=== PATIENT | female | born 1930 | race Caucasian/White ===

== ENCOUNTER 2018-01-30 10:37 | Inpatient (IN) ==
[2018-01-30 11:44] LABS: Basophils % 0.3 % (0.1-2.0); Eosinophils # 0.2 K/mm3 (0.0-0.4); Eosinophils % 1.1 % (0.1-12.0); Hemoglobin 12.1 g/dL (12.2-16.2); Lymphocytes # 1.3 K/mm3 (0.7-4.5); Lymphocytes % 9.2 K/mm3 (10-50); Mean Corpuscular Hemoglobin 27.7 pg (27.0-31.2); Mean Corpuscular Volume 89.3 fl (81-99); Mean Platelet Volume 6.9 fl (7.4-10.4); Monocytes # 0.9 K/mm3 (0.1-1.0); Monocytes % 6.4 % (1.7-9.3); Neutrophils # 11.3 K/mm3 (1.8-7.8); Platelet Count 368 K/mm3 (142-424); Red Blood Count 4.37 M/mm3 (4.20-5.40); Red Cell Distribution Width 13.4 % (11.5-17.5); White Blood Count 13.6 K/mm3 (4.8-10.8)
[2018-01-30 11:51] LABS: Anion Gap 11.5 mEq/L (5-15); Potassium 3.5 mmoL/L (3.5-5.1)
[2018-01-30 12:07] LABS: Creatine Kinase 35 U/L (26-192)
[2018-01-30 12:50] LABS: ABG Base Excess 3.5 mmol/L (-2.4-2.3); ABG HCO3 26.7 mmhg (22.0-26.0); ABG Oxygen Saturation 91 % (90-100); ABG PCO2 35.3 mmhg (35.0-45.0); ABG TCO2 27.8 mmhg (23-27)
[2018-01-30 12:51] LABS: Allen's Test Acceptable; Oxygen 32% %
[2018-01-30 13:05] LABS: Appearance,Urine CLEAR (Clear); Bilirubin,Urine Negative (Negative); Blood, Urine Negative (Negative); Color,Urine YELLOW (Yellow); Glucose,Urine (UA) Negative (Negative); Ketones,Urine Negative (Negative); Leukocyte Esterase,Urine Negative (Negative); Microscopic, Urine URINE MICROSCOPIC (MICROSCOPIC); Protein,Urine Negative (Negative); Specific Gravity, Urine 1.015 (1.005-1.030); Urobilinogen,Urine 0.2 EU/dl (0.2)
--- NOTE | 2018-01-30 13:12 | Emergency Department Note ---
ED Disposition Clinical Impression: COPD exacerbation Acute bronchitis Qualifiers: Bronchitis organism: other organism Qualified Code(s): J20.8 - Acute bronchitis due to other specified organisms Disposition: Admitted As Inpatient Condition on Discharge: Fair Time of Disposition: 13:10 - Critical Care Critical Care Time: No Attestation: On 01/30/18, the high probability of a clinically significant, sudden or life threatening deterioration of the following system(s) required my full and direct attention, intervention and personal management. The time I documented below is in addition to time spent performing reported procedures but includes the following listed in this critical care notation. Medical Decision Making - Medical Records Medical records reviewed: Yes: I reviewed the patient's medical records. - Sina Inquiry Pt receiving controlled substance: No Vital Signs: 01/30/18 10:38 Temperature 97.8 F Temperature Source Oral Pulse Rate [Left Radial] 83 Respiratory Rate 30 H Blood Pressure [Right Arm] 131/52 Blood Pressure Mean [Right Arm] 78 Blood Pressure Source [Right Arm] Automatic Cuff Blood Pressure Position [Right Arm] Sitting 02 Sat by Pulse Oximetry 98 Oxygen Delivery Method Nasal Cannula Oxygen Flow Rate (LPM) 3 - Lab Data Lab results reviewed: Yes: I reviewed the patient's lab results. Lab Results 01/30/18 10:43: Specimen Source Right brachial, O2 % 32%, ABG pH 7.50 H, ABG pCO2 35.3, ABG pO2 58.0 L, ABG HCO3 26.7 H, ABG Total CO2 27.8 H, ABG O2 Saturation 91, ABG Base Excess 3.5 H, Lalo Test Acceptable 01/30/18 11:30: WBC 13.6 H, RBC 4.37, Hgb 12.1 L, Hct 39.0, MCV 89.3, MCH 27.7, MCHC 31.0 L, RDW 13.4, Plt Count 368, MPV 6.9 L, Neut % (Auto) 83.0 H, Lymph % ( Auto) 9.2 L, Real % (Auto) 6.4, Eos % (Auto) 1.1, Baso % (Auto) 0.3, Neut # ( Auto) 11.3 H, Lymph # (Auto) 1.3, Real # (Auto) 0.9, Eos # (Auto) 0.2, Baso # ( Auto) 0.0 01/30/18 11:30: Sodium 142, Potassium 3.5, Chloride 102, Carbon Dioxide 32, Anion Gap 11.5, BUN 50 H, Creatinine 1.92 H, Estimated Creat Clear 18, Estimated GFR 25 L, Est GFR ( Amer) 30 L, Glucose 114 H, Calcium 10.0 01/30/18 11:30: Lactic Acid 2.2 H 01/30/18 11:30: Total Creatine Kinase 35, CK-MB (CK-2) 0.8, CK-MB (CK-2) Rel Index 2.3, Troponin I < 0.02 01/30/18 11:30: B-Natriuretic Peptide 180 H 01/30/18 13:00: Urine Color Yellow, Urine Appearance Clear, Urine pH 7.0, Ur Specific [place] 1.015, Urine Protein Negative, Urine Glucose (UA) Negative, Urine Ketones Negative, Urine Blood Negative, Urine Nitrate Negative, Urine Bilirubin Negative, Urine Urobilinogen 0.2, Ur Leukocyte Esterase Negative, Urine WBC Occasional, Ur Squamous Epith Cells Occasional, Urine Yeast 3+ Result diagrams: 01/30/18 11:30 01/30/18 11:30 Orders (Tests/Meds): ED MEDICATIONS Generic Name Dose Route Start Last Admin Trade Name Freq PRN Reason Stop Dose Admin Albuterol/Ipratropium 3 ml 01/30/18 20:00 Duoneb 3ml [facility] 03/01/18 19:59 QIDRT [facility] Enoxaparin Sodium 40 mg 01/30/18 16:56 01/30/18 17:27 Lovenox 40mg/0.4ml Syringe SQ 01/30/18 16:57 40 mg ONCE ONE Administration Methylprednisolone Sodium Succinate 60 mg 01/30/18 21:00 Solu-Medrol 125mg/2ml Vial IV 03/01/18 20:59 Q8 [facility] Discontinued Medications Generic Name Dose Route Start Last Admin Trade Name Freq PRN Reason Stop Dose Admin Albuterol/Ipratropium 3 ml 01/30/18 13:16 Duoneb 3ml [facility] 01/30/18 13:17 ONCE ONE Albuterol/Ipratropium 3 ml 01/30/18 15:14 Duoneb 3ml [facility] 03/01/18 15:13 Q4RT [facility] Sodium Chloride 1,000 mls @ 999 mls/hr 01/30/18 10:45 01/30/18 11:43 Sod Chlor 0.9% 1000ml Bag IV 01/30/18 11:45 999 mls/hr .Q1H1M TERELL Administration Ceftriaxone Sodium 1 gm/ 50 mls @ 100 mls/hr 01/30/18 15:45 Sodium Chloride IV 02/13/18 15:44 1300 TERELL Protocol Methylprednisolone Sodium Succinate 125 mg 01/30/18 10:45 01/30/18 11:42 Solu-Medrol 125mg/2ml Vial IV 01/30/18 10:46 125 mg ONCE ONE Administration Methylprednisolone Sodium Succinate 60 mg 01/30/18 21:00 Solu-Medrol 125mg/2ml Vial IV 03/01/18 20:59 Q12 TERELL Methylprednisolone Sodium Succinate 60 mg 01/30/18 16:45 01/30/18 17:13 Solu-Medrol 125mg/2ml Vial IV 03/01/18 16:44 Not Given Q8H TERELL ORDERS Category Date Time Status Blood Culture Stat Micro 01/30/18 11:30 Received - Radiology Data #1 Image(s): Chest Image Reviewed: Yes I reviewed the patient's radiology results, Yes I reviewed the patient's radiology image, Yes I discussed the image results w/the radiologist Preliminary Findings: Abnormal COPD - ECG Data Tracing #1 No acute ischemic changes, heart rate 88, no ectopies. ECG normal with no acute: arrhythmias, ischemia, conduction abnormalities, chamber hypertrophy Normal Sinus Rhythm: Yes - Physician Consults Physician Consulted: Dr Wheat Time: 13:00 Reason -: Admission, Pt condition Comment/Response: Advised of patient's presentation and findings, agreeable with admission - Reevaluation(s) Time: 12:55 Reevaluation #1: Upon reevaluation patient appears to be in distress, wheezing, tachypneic, advised of results obtained and plan to hospitalize, for observation. Resp/SOB HPI - General Chief Complaint: Shortness of Breath/Dyspnea Stated Complaint: SOA Time Seen by Provider: 01/30/18 11:00 Mode of Arrival: Ambulatory Source of Information: Patient Limitations: No Limitations Description of Symptoms (Recalled from ER Triage Doc. by RN): PT states she is sick all over, states she needs to be admitted for a few days, says she cant sleep and is a nervous wreck. She feels short of breath. - History of Present Illness MD Complaint: shortness of breath, cough, pain with inspiration Onset (ago): day(s) (2) Context: recent illness Severity: moderate Consistency/Duration: intermittent Relieving factors: oxygen Exacerbating factors: lying flat Known history of: COPD Associated symptoms: pain with inspiration, cough, wheezing Treatment prior to arrival: oxygen - Related Data Home oxygen amount: 2 liters Home Medications Medication Instructions Recorded Confirmed Aspirin [Aspirin 81mg chewable 81 mg PO DAILY 01/30/18 01/30/18 tab] Carvedilol [Carvedilol 6.25mg Tab] 6.25 mg PO DAILY 01/30/18 01/30/18 Cetirizine HCl 10 mg PO DAILY 01/30/18 01/30/18 diazePAM [Valium] 5 mg PO NEEDED PRN 01/30/18 01/30/18 Allergies Allergy/AdvReac Type Severity Reaction Status Date / Time No Known Allergies Allergy Verified 01/24/18 07:20 [facility] History I have reviewed the patient's past medical history: Yes Medical History: Denies:: Diabetes Mellitus Type 1, Diabetes Mellitus Type 2 Laterality Cases: Right: Total Hip Replacement - Social History Smoking Status: Former smoker Tobacco Type: cigarettes Alcohol Intake: never - Psychiatric History Expresses thoughts of harming self/others: None Suicide Plan Description: No Plan ROS Obtained: Yes All systems reviewed & no additional complaints, Yes Systems reviewed as appropriate & no additional complaints - Respiratory Respiratory: Yes system reviewed and no additional complaints, except as docu, Yes as per HPI, Yes chest congestion, Yes cough, Yes dyspnea on exertion Physical Exam - General General appearance: alert, in distress (moderate) - Head Head exam: atraumatic, normocephalic, normal inspection - Neck Neck exam: Present: normal inspection, full ROM, trachea midline. Absent: meningismus, lymphadenopathy - Chest Chest inspection: Present: normal inspection, symmetric chest wall rise. Absent : tenderness - Respiratory Respiratory exam: Present: respiratory distress, wheezes - Cardiovascular Cardiovascular exam: Present: regular rate, normal rhythm. Absent: JVD - Abdominal Exam Abdominal exam: Present: soft, normal bowel sounds. Absent: distention, tenderness, guarding - Extremities Exam Extremities exam: Present: normal inspection, full ROM, normal capillary refill. Absent: calf tenderness - Back Exam Back exam: Present: normal inspection. Absent: tenderness - Neurological Exam Neurological exam: Present: alert, oriented X3 - Psychiatric Psychiatric exam: Present: normal affect, normal mood - Skin Skin exam: Present: warm, dry, intact, normal color - Lymphatic Lymphatic Findings: no adenopathy
[2018-01-30 13:13] LABS: WBC,Urine Occasional #/hpf (0-3)
[2018-01-30 13:14] LABS: Squamous Epithelial Cell,Urine Occasional #/hpf (0-5); Yeast,Urine 3+ /lpf
--- NOTE | 2018-01-30 13:51 | Pharmacy Consult Notes ---
[facility] Pharmacy VTE Monitoring - Patient Demographics Admission date: 01/30/18 Report Date: 01/30/18 Time: 13:50 Allergies/Adverse Reactions: Patient Allergies No Known Allergies Allergy (Verified 01/24/18 07:20) Height: 1.68 m Weight: 54.431 kg Patient Problems: Current Active Problems COPD exacerbation (Acute) Acute bronchitis (Acute) - VTE Risk Labs: VTE Related Lab Results Hgb 12.1 g/dL (12.2-16.2) L 01/30/18 11:30 Hct 39.0 % (37.0-47.0) 01/30/18 11:30 Plt Count 368 K/mm3 (142-424) 01/30/18 11:30 BUN 50 mg/dL (7-18) H 01/30/18 11:30 Creatinine 1.92 mg/dL (0.55-1.02) H 01/30/18 11:30 Estimated Creat Clear 18 mL/min (0-300) 01/30/18 11:30 Clinical Trial Participant: No - Prophylaxis VTE Prophylaxis Ordered?: Yes Types of VTE Prophylaxis: TEDS Knee High
--- NOTE | 2018-01-30 16:41 | History & Physical Report ---
*Admission Date: 01/30/18 *Chief complaint: Shortness of breath *History of present illness: 88-year-old female presented to the emergency department for the second time in a week due to shortness of breath. Patient initially presented on January 24 and was diagnosed with COPD exacerbation. Patient was treated as an outpatient and followed up in my office 48 hours later. At that point patient noted that shortness of breath had improved some. She was still wheezing in the office. She was given intramuscular steroid injection and advised to continue her steroid Dosepak as well as use of nebulized albuterol. Patient presented to the ER today complaining of worsening shortness of breath, especially with exertion. Workup in the emergency department was negative for any pneumonia. As patient has failed outpatient treatment for COPD exacerbation she has been admitted for further treatment. Patient denies chest pain, first, chills. She does endorse orthopnea. She denies pedal edema. [facility] History I have reviewed the patient's past medical history: Yes Medical History: Reports:: Hyperlipidemia, Hypertension, Myocardial Infarction Denies:: Cancer, Diabetes Mellitus Type 1, Diabetes Mellitus Type 2, Internal Pacemaker, MRSA Other Medical History: Reports: Cataracts Laterality Cases: Right: Total Hip Replacement Other Surgeries: No: Pacemaker Amputation: No Fractures: No - *Social History Educational Level: Completed High School Smoking Status: Former smoker Tobacco Type: cigarettes Alcohol Intake: never Occupational Status: retired Housing: house Household Members: none - Psychiatric History Expresses thoughts of harming self/others: None Suicide Plan Description: No Plan Review of Systems - Constitutional Reports body ache(s), Denies chills - *Cardiovascular Denies chest pain, Denies chest pain at rest, Denies chest pain with activity - *Respiratory Reports shortness of breath, Reports shortness of breath with activity - *Gastrointestinal Denies abdominal pain Meds Allergies Allergy/AdvReac Type Severity Reaction Status Date / Time No Known Allergies Allergy Verified 01/24/18 07:20 Exam Vital signs and Labs for Last 24 Hours: Temp Pulse Resp BP Pulse Ox 97.8 F 83 22 131/52 96 01/30/18 14:21 01/30/18 14:21 01/30/18 14:21 01/30/18 14:21 01/30/18 14:13 Laboratory Results - last 24 hr 01/30/18 10:43: Specimen Source Right brachial, O2 % 32%, ABG pH 7.50 H, ABG pCO2 35.3, ABG pO2 58.0 L, ABG HCO3 26.7 H, ABG Total CO2 27.8 H, ABG O2 Saturation 91, ABG Base Excess 3.5 H, Lalo Test Acceptable 01/30/18 11:30: WBC 13.6 H, RBC 4.37, Hgb 12.1 L, Hct 39.0, MCV 89.3, MCH 27.7, MCHC 31.0 L, RDW 13.4, Plt Count 368, MPV 6.9 L, Neut % (Auto) 83.0 H, Lymph % ( Auto) 9.2 L, [place] % (Auto) 6.4, Eos % (Auto) 1.1, Baso % (Auto) 0.3, Neut # ( Auto) 11.3 H, Lymph # (Auto) 1.3, [place] # (Auto) 0.9, Eos # (Auto) 0.2, Baso # ( Auto) 0.0 01/30/18 11:30: Sodium 142, Potassium 3.5, Chloride 102, Carbon Dioxide 32, Anion Gap 11.5, BUN 50 H, Creatinine 1.92 H, Estimated Creat Clear 18, Estimated GFR 25 L, Est GFR ( Amer) 30 L, Glucose 114 H, Calcium 10.0 01/30/18 11:30: Lactic Acid 2.2 H 01/30/18 11:30: Total Creatine Kinase 35, CK-MB (CK-2) 0.8, CK-MB (CK-2) Rel Index 2.3, Troponin I < 0.02 01/30/18 11:30: B-Natriuretic Peptide 180 H 01/30/18 13:00: Urine Color Yellow, Urine Appearance Clear, Urine pH 7.0, Ur Specific [place] 1.015, Urine Protein Negative, Urine Glucose (UA) Negative, Urine Ketones Negative, Urine Blood Negative, Urine Nitrate Negative, Urine Bilirubin Negative, Urine Urobilinogen 0.2, Ur Leukocyte Esterase Negative, Urine WBC Occasional, Ur Squamous Epith Cells Occasional, Urine Yeast 3+ 01/30/18 15:45: Lactic Acid Fup @ 4Hr 1.7 I & O for Last 24 hours: Intake & Output 01/28/18 01/29/18 01/30/18 01/31/18 11:59 11:59 11:59 11:59 Weight 120 lb 32 lb 10.055 oz Narrative: Patient is resting comfortably in bed. Nasal cannula is in place. Oropharynx is dry. Neck is without lymphadenopathy or carotid bruits. Lungs are distant with faint expiratory wheeze posteriorly. Heart has a regular rate and rhythm. Abdomen is soft, nontender, nondistended. Extremities are without edema and are cool to the touch H&P: Result - Labs Labs: Short CBC 01/30/18 Range/Units 11:30 WBC 13.6 H (4.8-10.8) K/mm3 Hgb 12.1 L (12.2-16.2) g/dL Hct 39.0 (37.0-47.0) % Plt Count 368 (142-424) K/mm3 BMP 01/30/18 11:30 Sodium 142 Potassium 3.5 Chloride 102 Carbon Dioxide 32 BUN 50 H Creatinine 1.92 H Glucose 114 H Calcium 10.0 Cardiac Enzymes 01/30/18 Range/Units 11:30 Total Creatine Kinase 35 (26-192) U/L CK-MB (CK-2) 0.8 (0.0-3.6) ng/ml Troponin I < 0.02 (0.00-0.06) ng/ml Urine 01/30/18 Range/Units 13:00 Urine Color Yellow (Yellow) Urine Appearance Clear (Clear) Urine pH 7.0 (5.0-8.5) Ur Specific [place] 1.015 (1.005-1.030) Urine Protein Negative (Negative) Urine Glucose (UA) Negative (Negative) Assessment and Plan (1) COPD exacerbation Current visit: Yes Status: Acute Category: Medical Code(s): J44.1 - Chronic obstructive pulmonary disease with (acute) exacerbation - Assessment and plan all Dx Assessment and Plan for all problems:: Patient will be placed on IV Solu-Medrol 60 mg every 8 hours, duo nebs 4 times per day. Reassess in a.m. She was hypoxemic on her blood gas. Echocardiogram will be checked in the morning due to the patient's complaint of dyspnea on exertion and orthopnea. BNP was reassuring
--- NOTE | 2018-01-31 06:57 | Progress Note ---
Internal Medicine - PN: Subj *Date: 01/31/18 *Time: 06:56 Interval history: Patient reports poor quality sleep and persistent dyspnea, especially with exertion. She did receive a breathing treatment this morning which she believes helped her dyspnea. Lowest recorded oxygen sat overnight was 90%. She does report some posterior left-sided chest pain this morning Exam Vital signs and Labs for Last 24 Hours: Temp Pulse Resp BP Pulse Ox 97.8 F 104 H 24 118/65 92 L 01/31/18 04:28 01/31/18 06:07 01/31/18 04:28 01/31/18 04:28 01/31/18 06:07 Laboratory Results - last 24 hr 01/30/18 10:43: Specimen Source Right brachial, O2 % 32%, ABG pH 7.50 H, ABG pCO2 35.3, ABG pO2 58.0 L, ABG HCO3 26.7 H, ABG Total CO2 27.8 H, ABG O2 Saturation 91, ABG Base Excess 3.5 H, Lalo Test Acceptable 01/30/18 11:30: WBC 13.6 H, RBC 4.37, Hgb 12.1 L, Hct 39.0, MCV 89.3, MCH 27.7, MCHC 31.0 L, RDW 13.4, Plt Count 368, MPV 6.9 L, Neut % (Auto) 83.0 H, Lymph % ( Auto) 9.2 L, [place] % (Auto) 6.4, Eos % (Auto) 1.1, Baso % (Auto) 0.3, Neut # ( Auto) 11.3 H, Lymph # (Auto) 1.3, [place] # (Auto) 0.9, Eos # (Auto) 0.2, Baso # ( Auto) 0.0 01/30/18 11:30: Sodium 142, Potassium 3.5, Chloride 102, Carbon Dioxide 32, Anion Gap 11.5, BUN 50 H, Creatinine 1.92 H, Estimated Creat Clear 18, Estimated GFR 25 L, Est GFR ( Amer) 30 L, Glucose 114 H, Calcium 10.0 01/30/18 11:30: Lactic Acid 2.2 H 01/30/18 11:30: Total Creatine Kinase 35, CK-MB (CK-2) 0.8, CK-MB (CK-2) Rel Index 2.3, Troponin I < 0.02 01/30/18 11:30: B-Natriuretic Peptide 180 H 01/30/18 13:00: Urine Color Yellow, Urine Appearance Clear, Urine pH 7.0, Ur Specific [place] 1.015, Urine Protein Negative, Urine Glucose (UA) Negative, Urine Ketones Negative, Urine Blood Negative, Urine Nitrate Negative, Urine Bilirubin Negative, Urine Urobilinogen 0.2, Ur Leukocyte Esterase Negative, Urine WBC Occasional, Ur Squamous Epith Cells Occasional, Urine Yeast 3+ 01/30/18 15:45: Lactic Acid Fup @ 4Hr 1.7 I & O for Last 24 hours: Intake & Output 01/28/18 01/29/18 01/30/18 01/31/18 11:59 11:59 11:59 11:59 Intake Total 100 / 100 Balance 100 / 100 Weight 120 lb 32 lb 10.055 oz Narrative: She is in no distress. Nasal cannula is in place. Heart has a regular rate and rhythm. Lungs are distant but clear this morning and without wheezes. Assessment and Plan (1) COPD exacerbation Current visit: Yes Status: Acute Category: Medical Code(s): J44.1 - Chronic obstructive pulmonary disease with (acute) exacerbation - Assessment and plan all Dx Assessment and Plan for all problems:: 1. Continue steroids and nebs 2. Echocardiogram today to assess LV function 3. CT angiogram of the chest to rule out pulmonary embolism due to patient's significant dyspnea with hypoxemia
--- NOTE | 2018-02-01 06:04 | Cardiology Report ---
PROCEDURE: 2-D M-mode and color Doppler study INDICATIONS FOR THE TEST: Chest pain COPDX Heart Murmur Tobacco SmokingEX Palpitations Fatigue Syncope Edema Hypertension Diabetes Mellitus Rheumatic Fever SOBXDOEXObesity HyperlipidemiaX Family History HD Additional History CAD ALL IMAGES FROM APICAL AND SUBCOSTAL VIEWS LIMITED EXAM PATIENT INFORMATION HEIGHT: 66 WEIGHT:92 GENDER: Female B/P:131/52 2-D/M-MODE INTERPRETATION: 2-D MEASUREMENTS OBSERVED VALUES IN CMS Right Ventricular Dimension (RVDd) Interventricular Septum (Thickness)(IVsd) Left Ventricular Internal Dimensions(LVIDd) Left Ventricular Posterior Wall (Thickness)(LVPWd) Aortic Root Aortic Cusp Separation Left Atrial Dimensions (LAD) 2D 1. Technically difficult study because of the patient's factor and poor acoustic windows, endocardial surfaces and valvular structures of poorly visualized. 2. The left atrium is mildly enlarged, left ventricle is normal size, there is hyperdynamic left ventricular systolic function, visually estimated ejection fraction of over 65% with no obvious regional wall motion abnormality. 3. The right atrium and right ventricle are normal size and contractility. 4. The aortic valve is thickened and calcified leaflet continue to display mobility. 5. The mitral valve has mitral annular calcification, which extends and both anterior and posterior mitral leaflet. 6. The tricuspid valve is grossly normal. 7. The pulmonic valve is poorly visualized. 8. No significant pericardial effusion noted. DOPPLER INTERROGATION: Doppler interrogation of the aortic, mitral and tricuspid valvular presence of mild mitral and tricuspid regurgitation, tricuspid regurgitant jet velocity is insufficient for calculation of the right ventricular systolic pressure, grade 1 diastolic dysfunction seen with tissue Doppler evidence of raised left atrial pressure. CONCLUSION: 1. Technically difficult study as described above 2. Mildly enlarged left atrium, normal left ventricular size, hyperdynamic left ventricular systolic function, visually estimated ejection fraction of over 65% with no obvious regional wall motion abnormality, grade 1 diastolic dysfunction seen with tissue Doppler evidence of raised left atrial pressure. 3. Mild mitral and tricuspid regurgitation 4. No significant pericardial effusion noted.
--- NOTE | 2018-02-01 07:18 | Progress Note ---
Internal Medicine - PN: Subj *Date: 02/01/18 *Time: 07:16 Interval history: Patient reports feeling a little better. A room air sat was checked on the patient and was 81% at bedside and after ambulating was 69%. Patient was started on IV fluids yesterday afternoon due to increased BUN and creatinine Exam Vital signs and Labs for Last 24 Hours: Temp Pulse Resp BP Pulse Ox 97.4 F L 74 24 145/67 96 02/01/18 04:00 02/01/18 05:59 02/01/18 04:00 02/01/18 04:00 02/01/18 05:57 Laboratory Results - last 24 hr 01/31/18 08:50: BUN 52 H, Creatinine 2.14 H, Estimated Creat Clear 12, Estimated GFR 22 L, Est GFR ( Amer) 26 L I & O for Last 24 hours: Intake & Output 01/29/18 01/30/18 01/31/18 02/01/18 11:59 11:59 11:59 11:59 Intake Total 340 / 340 1265 / 1265 Output Total 300 / 300 Balance 340 / 340 965 / 965 Weight 120 lb 32 lb 10.055 oz 97 lb 7 oz Narrative: Patient appears well. Lungs are clear at the moment. Heart has a regular rate and rhythm. Extremities are without edema. Assessment and Plan (1) COPD exacerbation Current visit: Yes Status: Acute Category: Medical Code(s): J44.1 - Chronic obstructive pulmonary disease with (acute) exacerbation (2) Acute kidney injury Current visit: Yes Status: Acute Category: Medical Code(s): N17.9 - Acute kidney failure, unspecified - Assessment and plan all Dx Assessment and Plan for all problems:: 1. Decrease Solu-Medrol 2. Await BMP this morning and anticipate stopping fluids later this afternoon 3. Physical therapy evaluation.
[2018-02-01 08:42] LABS: Basophils % 0.1 % (0.1-2.0); Eosinophils % 0.3 % (0.1-12.0); Hematocrit 32.2 % (37.0-47.0); Hemoglobin 9.9 g/dL (12.2-16.2); Lymphocytes # 0.3 K/mm3 (0.7-4.5); Lymphocytes % 2.9 K/mm3 (10-50); Mean Corpuscular HGB Conc 30.7 g/dL (31.8-35.4); Mean Corpuscular Hemoglobin 28.1 pg (27.0-31.2); Mean Corpuscular Volume 91.6 fl (81-99); Monocytes # 0.3 K/mm3 (0.1-1.0); Monocytes % 2.2 % (1.7-9.3); Neutrophils # 10.9 K/mm3 (1.8-7.8); Neutrophils % 94.4 % (37.0-80.0); Platelet Count 298 K/mm3 (142-424); Red Blood Count 3.52 M/mm3 (4.20-5.40); Red Cell Distribution Width 13.3 % (11.5-17.5); White Blood Count 11.6 K/mm3 (4.8-10.8)
[2018-02-01 09:02] LABS: Anion Gap 12.4 mEq/L (5-15); Potassium 3.4 mmoL/L (3.5-5.1)
[2018-02-01 09:27] LABS: Calcium 8.9 mg/dL (8.5-10.1)
[2018-02-01 11:13] LABS: Lymphocytes % 7 % (10-50); Neutrophils % 93 % (42-76); Total Cells Counted 100
[2018-02-01 11:14] LABS: RBC Morphology Normal
--- NOTE | 2018-02-02 07:11 | Discharge Summary ---
General - General Admission date:: 01/30/18 Discharge date: 02/02/18 HPI HPI: 88-year-old female presented to the emergency department for the second time in a week due to shortness of breath. Patient initially presented on January 24 and was diagnosed with COPD exacerbation. Patient was treated as an outpatient and followed up in my office 48 hours later. At that point patient noted that shortness of breath had improved some. She was still wheezing in the office. She was given intramuscular steroid injection and advised to continue her steroid Dosepak as well as use of nebulized albuterol. Patient presented to the ER today complaining of worsening shortness of breath, especially with exertion. Workup in the emergency department was negative for any pneumonia. As patient has failed outpatient treatment for COPD exacerbation she has been admitted for further treatment. Patient denies chest pain, first, chills. She does endorse orthopnea. She denies pedal edema. Hospital Course Hospital Course: Patient was admitted and placed on standard therapies for COPD exacerbation of Solu-Medrol 60 mg every 8 hours, duo nebs. Patient's lung exam improved with treatment although she remained hypoxic on room air and continued to complain of dyspnea on exertion. Echocardiogram and VQ scan were performed to rule out CHF and pulmonary embolism as potential causes of worsening dyspnea. Patient had a normal ejection fraction of 65% in VQ scan was intermediate probability. Over the course of hospitalization the symptoms also improved. Patient's room air sat was 69%. Patient already has oxygen at home she has been informed she will need to wear her oxygen 24 hours per day. Patient had difficulty sleeping while hospitalized Benadryl was initially used to help the patient but this was ineffective. Patient was then given Valium 5 mg to take at night which was quite effective in helping sleep. On February 02 patient was discharged home. Patient will follow-up in my office in 1 week. Objective Vital signs: Temp Pulse Resp BP Pulse Ox 97.5 F L 69 20 123/55 96 02/02/18 04:00 02/02/18 04:00 02/02/18 04:00 02/02/18 04:00 02/02/18 04:00 Results Labs on day of discharge: Labs from last 24 hours 02/01/18 02/01/18 08:30 08:30 WBC 11.6 H RBC 3.52 L Hgb 9.9 L Hct 32.2 L MCV 91.6 MCH 28.1 MCHC 30.7 L RDW 13.3 Plt Count 298 MPV 7.0 L Neut % (Auto) 94.4 H Lymph % (Auto) 2.9 L [place] % (Auto) 2.2 Eos % (Auto) 0.3 Baso % (Auto) 0.1 Neut # (Auto) 10.9 H Lymph # (Auto) 0.3 L [place] # (Auto) 0.3 Eos # (Auto) 0.0 Baso # (Auto) 0.0 Total Counted 100 Neutrophils % (Manual) 93 H Lymphocytes % (Manual) 7 L Platelet Estimate Normal RBC Morphology Normal Sodium 141 Potassium 3.4 L Chloride 104 Carbon Dioxide 28 Anion Gap 12.4 BUN 50 H Creatinine 1.79 H Estimated Creat Clear 16 Estimated GFR 27 L Est GFR ( Amer) 32 L D Glucose 178 H Calcium 8.9 D Preliminary micro results at discharge 01/30/18 11:30 Blood Culture - Preliminary Blood NO GROWTH AFTER 48 HOURS 01/30/18 11:30 Blood Culture - Preliminary Blood NO GROWTH AFTER 48 HOURS DS: Diagnosis - Discharge Diagnosis (1) COPD exacerbation Status: Acute (2) Acute kidney injury Status: Acute Discharge Plan - Patient Discharge Instructions ACTIVITY: Continue current activity DIET: continue same diet - Follow up Plan Follow up with: Ervin Wheat MD [Primary Care Provider] - 1 week Disposition: Home, Self-Senior Care Medications: Home Medications Medication Instructions Recorded Confirmed Type Aspirin [Aspirin 81mg chewable 81 mg PO DAILY 01/30/18 01/30/18 History tab] Carvedilol [Carvedilol 6.25mg Tab] 6.25 mg PO BID 01/30/18 01/31/18 History RX: Cetirizine HCl 10 mg PO DAILY 01/30/18 01/30/18 History diazePAM [Valium] 5 mg PO NEEDED PRN 01/30/18 01/30/18 History Potassium Chloride [K-Tab ER 20 20 meq PO DAILY 01/31/18 01/31/18 History mEq] Triamterene/Hydrochlorothiazid 1 each PO DAILY 01/31/18 01/31/18 History [Maxzide 37.5 mg-25 mg Tablet] Prescriptions/Medication Reconciliation: New RX: predniSONE [Deltasone 10mg tablet] 10 mg PO DAILY 7 Days #7 tab Continue Aspirin [Aspirin 81mg chewable tab] 81 mg PO DAILY Carvedilol [Carvedilol 6.25mg Tab] 6.25 mg PO BID diazePAM [Valium] 5 mg PO NEEDED PRN PRN Reason: Anxiety RX: Cetirizine HCl 10 mg PO DAILY Potassium Chloride [K-Tab ER 20 mEq] 20 meq PO DAILY Discontinued Triamterene/Hydrochlorothiazid [Maxzide 37.5 mg-25 mg Tablet] 1 each PO DAILY
== END 2018-02-02 09:20 | disposition home or self-care (01) ==
LOC: ER 10:37 → 2ND 13:20
PROVIDERS: ADMIT Family Medicine; ATTEND Family Medicine

== ENCOUNTER 2018-08-22 17:18 | Inpatient (IN) ==
--- NOTE | 2018-08-22 18:16 | Emergency Department Note ---
ED Disposition Clinical Impression: Fall, Osteoporosis, Hip fracture due to osteoporosis, COPD (chronic obstructive pulmonary disease), Steroid dependence Disposition: Still a Patient Condition on Discharge: Fair Referrals: Ervin Wheat MD [Primary Care Provider] - - Critical Care Critical Care Time: No Attestation: On 08/22/18, the high probability of a clinically significant, sudden or life threatening deterioration of the following system(s) required my full and direct attention, intervention and personal management. The time I documented below is in addition to time spent performing reported procedures but includes the following listed in this critical care notation. Medical Decision Making - Sina Inquiry Pt receiving controlled substance: No Sina was queried for this patient: No Vital Signs: 08/22/18 17:21 Temperature 97.8 F Temperature Source Oral Pulse Rate [Right Radial] 79 Respiratory Rate 22 Blood Pressure [Right Arm] 147/86 H Blood Pressure Mean [Right Arm] 106 02 Sat by Pulse Oximetry 93 L Oxygen Delivery Method Nasal Cannula Oxygen Flow Rate (LPM) 2 Orders (Tests/Meds): ED MEDICATIONS Discontinued Medications Generic Name Dose Route Start Last Admin Trade Name Freq PRN Reason Stop Dose Admin Acetaminophen 650 mg 08/22/18 18:16 Acetaminophen 325mg Tab PO 08/22/18 18:17 ONCE ONE Ondansetron HCl 4 mg 08/22/18 18:01 08/22/18 18:16 Zofran 4mg Odt SL 08/22/18 18:02 4 mg ONCE ONE Administration ORDERS Category Date Time Status CT hip LT wo con Stat Cat Scan 08/22/18 18:07 Taken XR femur LT 2V Stat Exams 08/22/18 17:22 Taken XR hip LT 2-3V w/pelvis Stat Exams 08/22/18 17:22 Taken - CT Data Time Received: 18:[address] Reviewed: Yes: I have viewed the radiologist's interpretation Preliminary Findings: Abnormal Findings Narrative: Transverse subcapital left hip fracture Medical Decision Narrative: I reviewed the CT report and contacted Dr. Snider who agreed to the patient in consultation. I spoke with Dr. Robles was commercial correspondent for her primary care physician Dr. Wheat agreed to admit the patient. She is n.p.o. after midnight for surgery tomorrow. Fall HPI - General Chief Complaint: Fall Stated Complaint: fall Time Seen by Provider: 08/22/18 17:30 Mode of Arrival: EMS Limitations: No Limitations Description of Symptoms (Recalled from ER Triage Doc. by RN): pt states she slipped at home and hurt her left thigh area. - History of Present Illness HPI Narrative: 88 years old white female with history of osteoporosis and fracture of the right hip. Today after her son left her she slipped and fell in the kitchen landed on the left hip with a result of pain involving the left hip and femur. She has small external rotation with no gross deformity or loss of movement. She denies having lower back pain she denies having weakness numbness or loss of urine or bowel control. complaint: fall Fall from: standing Fall witnessed: no Place fall occurred: home Loss of consciousness: none Prolonged down time: no Symptoms prior to fall: none Context: tripped/slipped Location of injury - extremities: Left: thigh Severity: mild Quality: dull Associated symptoms (after fall): denies - Related Data Home Medications Medication Instructions Recorded Confirmed Aspirin [Aspirin 81mg chewable 81 mg PO DAILY 01/30/18 08/22/18 tab] Carvedilol [Carvedilol 6.25mg Tab] 6.25 mg PO BID 01/30/18 08/22/18 Cetirizine HCl 10 mg PO DAILY 01/30/18 08/22/18 diazePAM [Valium] 5 mg PO NEEDED PRN 01/30/18 08/22/18 Potassium Chloride [K-Tab ER 20 20 meq PO DAILY 01/31/18 08/22/18 mEq] predniSONE [Deltasone 10mg tablet] 10 mg PO DAILY 08/22/18 08/22/18 Allergies Allergy/AdvReac Type Severity Reaction Status Date / Time No Known Allergies Allergy Verified 01/24/18 07:20 [facility] History - Hepatitis A Screen Drug use history?: No High risk sexual behaviors?: No History of sexually transmitted infection?: No Currently employed?: No Childcare worker?: No Do you have indoor plumbing?: No Do you have electricity?: Yes Attestation statement:: This patient has been screened for Hepatitis A risk factors. I have reviewed the patient's past medical history: Yes Medical History: Reports:: Hyperlipidemia, Hypertension, Myocardial Infarction Denies:: Cancer, Diabetes Mellitus Type 1, Diabetes Mellitus Type 2, Internal Pacemaker, MRSA Other Medical History: Reports: Cataracts Laterality Cases: Right: Total Hip Replacement Other Surgeries: No: Pacemaker Amputation: No Fractures: No - Social History Smoking Status: Never smoker Tobacco Type: cigarettes Alcohol Intake: never Occupational Status: retired Housing: house Household Members: none - Psychiatric History Expresses thoughts of harming self/others: None Suicide Plan Description: No Plan ROS Obtained: Yes All systems reviewed & no additional complaints Physical Exam - General General appearance: alert, in no apparent distress - Head Head exam: atraumatic, normocephalic, normal inspection - Eye Eye exam: Present: normal appearance, PERRL, EOMI. Absent: scleral icterus, nystagmus - ENT ENT exam: Present: normal exam, normal oropharynx, mucous membranes moist, TM's normal bilaterally, normal external ear exam, other (The is hard hearing. ) - Neck Neck exam: Present: normal inspection, full ROM, trachea midline. Absent: meningismus, lymphadenopathy - Chest Chest inspection: Present: normal inspection, symmetric chest wall rise. Absent: tenderness, rash - Respiratory Respiratory exam: Present: normal lung sounds bilaterally. Absent: respiratory distress, wheezes, stridor - Cardiovascular Cardiovascular exam: Present: regular rate, normal rhythm, normal heart sounds. Absent: JVD - Abdominal Exam Abdominal exam: Present: soft, normal bowel sounds. Absent: distention, tenderness, guarding, rebound, rigidity - Extremities Exam Extremities exam: Present: normal inspection, full ROM, tenderness, normal capillary refill, other (Eft hip tenderness no deformity no loss of movement.). Absent: pedal edema, calf tenderness - Back Exam Back exam: Present: normal inspection. Absent: tenderness, CVA tenderness (R), CVA tenderness (L) - Neurological Exam Neurological exam: Present: alert, oriented X3, CN II-XII intact, motor sensory deficit, reflexes normal - Psychiatric Psychiatric exam: Present: normal affect, normal mood - Skin Skin exam: Present: warm, dry, intact, normal color - Lymphatic Lymphatic Findings: no adenopathy
[2018-08-22 19:53] LABS: Basophils % 0.3 % (0.1-2.0); Eosinophils # 0.3 K/mm3 (0.0-0.4); Eosinophils % 1.8 % (0.1-12.0); Hematocrit 29.7 % (37.0-47.0); Hemoglobin 9.5 g/dL (12.2-16.2); Lymphocytes # 1.1 K/mm3 (0.7-4.5); Lymphocytes % 7.7 % (10-50); Mean Corpuscular Hemoglobin 28.6 pg (27.0-31.2); Mean Corpuscular Volume 89.6 fl (81-99); Mean Platelet Volume 6.4 fl (7.4-10.4); Monocytes # 0.5 K/mm3 (0.1-1.0); Monocytes % 3.2 % (1.7-9.3); Neutrophils # 12.4 K/mm3 (1.8-7.8); Neutrophils % 87.1 % (37.0-80.0); Platelet Count 390 K/mm3 (142-424); Red Blood Count 3.31 M/mm3 (4.20-5.40); Red Cell Distribution Width 13.2 % (11.5-17.5); White Blood Count 14.2 K/mm3 (4.8-10.8)
[2018-08-22 19:59] LABS: Microscopic, Urine URINE MICROSCOPIC (MICROSCOPIC)
[2018-08-22 20:04] LABS: Activated Partial Thrombo Time 27.8 seconds (23.6-34.0); INR 1.04 (0.9-1.1); Prothrombin Time 10.7 seconds (9.4-11.8)
[2018-08-22 20:08] LABS: Albumin Level 3.2 gm/dL (3.4-5.0); Albumin/Globulin Ratio 0.8 (1.1-1.8); Anion Gap 14.5 mEq/L (5-15); Bilirubin,Total 0.3 mg/dL (0.2-1.0); Calcium 8.7 mg/dL (8.5-10.1); Potassium 3.5 mmoL/L (3.5-5.1); Total Protein,Serum 7.2 gm/dL (6.4-8.2)
[2018-08-22 20:24] LABS: Appearance,Urine CLEAR (Clear); Bilirubin,Urine Negative (Negative); Blood, Urine Negative (Negative); Color,Urine YELLOW (Yellow); Glucose,Urine (UA) Negative (Negative); Ketones,Urine Negative (Negative); Leukocyte Esterase,Urine 1+ (Negative); Protein,Urine Negative (Negative); Urobilinogen,Urine 0.2 EU/dl (0.2)
[2018-08-22 20:40] LABS: Bacteria,Urine 1+ /lpf; Yeast,Urine 1+ /lpf
[2018-08-22 20:50] LABS: Lymphocytes % 9 % (10-50); Monocytes % 1 % (2-9); Neutrophils % 89 % (42-76); Total Cells Counted 100
[2018-08-22 20:51] LABS: Anisocytosis 1+; Stomatocytes 1+
[2018-08-23 07:01] LABS: Anion Gap 15.9 mEq/L (5-15); Calcium 8.6 mg/dL (8.5-10.1); Potassium 3.9 mmoL/L (3.5-5.1)
[2018-08-23 07:02] LABS: Basophils % 0.2 % (0.1-2.0); Eosinophils # 0.4 K/mm3 (0.0-0.4); Eosinophils % 2.8 % (0.1-12.0); Hematocrit 31.7 % (37.0-47.0); Hemoglobin 10.2 g/dL (12.2-16.2); Lymphocytes # 0.9 K/mm3 (0.7-4.5); Lymphocytes % 7.1 % (10-50); Mean Corpuscular HGB Conc 32.2 g/dL (31.8-35.4); Mean Corpuscular Hemoglobin 28.7 pg (27.0-31.2); Mean Corpuscular Volume 89.2 fl (81-99); Mean Platelet Volume 7.6 fl (7.4-10.4); Monocytes # 0.5 K/mm3 (0.1-1.0); Monocytes % 3.7 % (1.7-9.3); Neutrophils # 10.9 K/mm3 (1.8-7.8); Neutrophils % 86.1 % (37.0-80.0); Platelet Count 323 K/mm3 (142-424); Red Blood Count 3.56 M/mm3 (4.20-5.40); Red Cell Distribution Width 13.4 % (11.5-17.5); White Blood Count 12.7 K/mm3 (4.8-10.8)
--- NOTE | 2018-08-23 07:34 | History & Physical Report ---
*Admission Date: 08/22/18 *Chief complaint: Fall at home *History of present illness: 88-year-old female with COPD and history of coronary artery disease presented to the emergency department after slipping and falling at home landing on her left side. Patient tells me she was wearing house slippers in her kitchen when she lost her footing and fell. She denies loss of consciousness. She denies chest pain. Patient was brought to the emergency department where she was diagnosed with a left femoral neck fracture. Patient was admitted for orthopedic consultation. This morning she denies pain in her hip. Her biggest complaint is being n.p.o. She tells me she has been taking her medicines regularly. She wears oxygen at home the majority of the time. [facility] History Medical History: Reports:: Chronic Obstructive Pulmonary Disease (COPD), Hyperlipidemia, Hypertension, Myocardial Infarction Denies:: Cancer, Diabetes Mellitus Type 1, Diabetes Mellitus Type 2, Internal Pacemaker, MRSA Other Medical History: Reports: Cataracts Laterality Cases: Right: Total Hip Replacement Other Surgeries: Yes: Tubal Ligation. No: Pacemaker Amputation: No Fractures: No - *Social History Educational Level: Completed High School Smoking Status: Former smoker Tobacco Type: cigarettes Alcohol Intake: never Occupational Status: retired Housing: house Household Members: none - Psychiatric History Expresses thoughts of harming self/others: None Suicide Plan Description: No Plan Review of Systems - Review of Systems Review of systems:: pertinent systems reviewed and negative unless documented below - Constitutional Denies body ache(s), Denies chills - Eyes Denies change in vision - *Cardiovascular Reports shortness of breath, Reports shortness of breath with activity, Denies chest pain at rest, Denies chest pain with activity, Denies irregular heart rhythm, Denies leg swelling - *Respiratory Reports shortness of breath (Chronic from COPD), Denies chest congestion, Denies cough - *Gastrointestinal Denies abdominal pain, Denies bloating - *Musculoskeletal Reports joint pain - *Neurologic Reports abnormal hearing Meds Home Medications Medication Instructions Recorded Confirmed Type Aspirin [Aspirin 81mg chewable 81 mg PO DAILY 01/30/18 08/22/18 History tab] Carvedilol [Carvedilol 6.25mg Tab] 6.25 mg PO BID 01/30/18 08/22/18 History diazePAM [Valium] 5 mg PO NEEDED PRN 01/30/18 08/22/18 History Allergies Allergy/AdvReac Type Severity Reaction Status Date / Time No Known Allergies Allergy Verified 01/24/18 07:20 Exam Vital signs and Labs for Last 24 Hours: Temp Pulse Resp BP Pulse Ox 97.8 F 91 H 18 99/56 L 91 L 08/23/18 04:33 08/23/18 04:33 08/23/18 04:33 08/23/18 04:33 08/23/18 04:33 Laboratory Results - last 24 hr 08/22/18 19:40: WBC 14.2 H, RBC 3.31 L, Hgb 9.5 L, Hct 29.7 L, MCV 89.6, MCH 28.6, MCHC 32.0, RDW 13.2, Plt Count 390, MPV 6.4 L, Neut % (Auto) 87.1 H, Lymph % (Auto) 7.7 L, [place] % (Auto) 3.2, Eos % (Auto) 1.8, Baso % (Auto) 0.3, Neut # (Auto) 12.4 H, Lymph # (Auto) 1.1, [place] # (Auto) 0.5, Eos # (Auto) 0.3, Baso # (Auto) 0.0, Total Counted 100, Neutrophils % (Manual) 89 H, Lymphocytes % (Manual) 9 L, Monocytes % (Manual) 1 L, Basophils % (Manual) 1.0, Platelet Estimate Normal, Anisocytosis 1+, Stomatocytes 1+ 08/22/18 19:40: PT 10.7, INR 1.04, APTT 27.8 08/22/18 19:40: Sodium 140, Potassium 3.5, Chloride 103, Carbon Dioxide 26, Anion Gap 14.5, BUN 41 H, Creatinine 2.08 H, Estimated Creat Clear 17, Estimated GFR 23 L, Est GFR ( Amer) 27 L, Glucose 106, Calcium 8.7, Total Bilirubin 0.3, AST 15, ALT 17, Alkaline Phosphatase 112, Total Protein 7.2, Albumin 3.2 L, Globulin 4.0 H, Albumin/Globulin Ratio 0.8 L 08/22/18 19:50: Urine Color Yellow, Urine Appearance Clear, Urine pH 6.0, Ur Specific [place] 1.020, Urine Protein Negative, Urine Glucose (UA) Negative, Urine Ketones Negative, Urine Blood Negative, Urine Nitrate Negative, Urine Bilirubin Negative, Urine Urobilinogen 0.2, Ur Leukocyte Esterase 1+ A, Urine RBC 3-5, Urine WBC 10-20, Ur Squamous Epith Cells 3-5, Urine Bacteria 1+, Urine Yeast 1+ 08/23/18 06:17: WBC 12.7 H, RBC 3.56 L, Hgb 10.2 L, Hct 31.7 L, MCV 89.2, MCH 28.7, MCHC 32.2, RDW 13.4, Plt Count 323, MPV 7.6, Neut % (Auto) 86.1 H, Lymph % (Auto) 7.1 L, [place] % (Auto) 3.7, Eos % (Auto) 2.8, Baso % (Auto) 0.2, Neut # (Auto) 10.9 H, Lymph # (Auto) 0.9, [place] # (Auto) 0.5, Eos # (Auto) 0.4, Baso # (Auto) 0.0 08/23/18 06:17: Sodium 141, Potassium 3.9, Chloride 106, Carbon Dioxide 23, Anion Gap 15.9 H, BUN 38 H, Creatinine 1.89 H, Estimated Creat Clear 15, Estimated GFR 25 L, Est GFR ( Amer) 31 L, Glucose 107 H, Calcium 8.6 I & O for Last 24 hours: Intake & Output 08/20/18 08/21/18 08/22/18 08/23/18 11:59 11:59 11:59 11:59 Output Total 200 / 200 Balance -200 / -200 Weight 96 lb 8 oz Microbiology Reports for the Last 24 Hours: Microbiology 08/22/18 19:50 Urine,Catheterized Urine Culture - Preliminary Narrative: Patient is awake and alert this morning. ENT exam reveals no gross abnormalities. Oropharynx is moist. Neck is without lymphadenopathy. Lungs are very distant with no abnormal breath sounds. Heart has a regular rate and rhythm and is also distant. Spine is kyphotic. Abdomen is soft. Extremities are warm to the touch. Patient is neurovascularly intact in both feet. I did not manipulate the left hip. EKG was reviewed. There is an EKG on her paper chart performed at 7:37 PM yesterday evening which is heavy with artifact and difficult to read. An EKG performed again at 7:40 PM and shows a sinus rhythm without evidence of ischemia, infarct, injury Assessment and Plan (1) Hip fracture due to osteoporosis Current visit: Yes Status: Acute Category: Medical Code(s): M80.059A - Age-related osteoporosis with current pathological fracture, unspecified femur, initial encounter for fracture (2) History of VT (myocardial infarction) Current visit: Yes Status: Acute Category: Medical Code(s): I25.2 - Old myocardial infarction (3) Chronic kidney disease, stage III (moderate) Current visit: Yes Status: Acute Category: Medical Code(s): N18.3 - Chronic kidney disease, stage 3 (moderate) (4) COPD (chronic obstructive pulmonary disease) Current visit: Yes Status: Acute Category: Medical Code(s): J44.9 - Chronic obstructive pulmonary disease, unspecified (5) Fall Current visit: Yes Status: Acute Category: Medical Code(s): W19.XXXA - Unspecified fall, initial encounter - Assessment and plan all Dx Assessment and Plan for all problems:: 1. Orthopedic service has been consulted. Patient may proceed with surgery when planned. Continue her beta-tex and aspirin. 2. Aggressive use of incentive spirometer and duo nebs postoperatively
--- NOTE | 2018-08-23 07:36 | Pharmacy Consult Notes ---
[facility] Pharmacy VTE Monitoring - Patient Demographics Admission date: 08/22/18 Report Date: 08/23/18 Time: 07:35 Allergies/Adverse Reactions: Patient Allergies No Known Allergies Allergy (Verified 01/24/18 07:20) Height: 1.68 m Weight: 43.772 kg Patient Problems: Current Active Problems Fall (Acute) Osteoporosis (Acute) Hip fracture due to osteoporosis (Acute) COPD (chronic obstructive pulmonary disease) (Acute) Steroid dependence (Acute) - VTE Risk Labs: VTE Related Lab Results Hgb 10.2 g/dL (12.2-16.2) L 08/23/18 06:17 Hct 31.7 % (37.0-47.0) L 08/23/18 06:17 Plt Count 323 K/mm3 (142-424) 08/23/18 06:17 PT 10.7 seconds (9.4-11.8) 08/22/18 19:40 INR 1.04 (0.9-1.1) 08/22/18 19:40 APTT 27.8 seconds (23.6-34.0) 08/22/18 19:40 BUN 38 mg/dL (7-18) H 08/23/18 06:17 Creatinine 1.89 mg/dL (0.55-1.02) H 08/23/18 06:17 Estimated Creat Clear 15 mL/min (50-200) 08/23/18 06:17 Was VTE Risk Assessment Performed: Yes VTE Score: 3 VTE Risk Level: Low Risk - Prophylaxis VTE Prophylaxis Ordered?: Yes Types of VTE Prophylaxis: TEDS Knee High Location of Applied Device: Bilateral Lower Extremeties - VTE Diagnosis Confirmed Treatment or plan recommended: Continue Current Treatment
[2018-08-23 08:57] LABS: Lymphocytes % 6 % (10-50); Monocytes % 4 % (2-9); Neutrophils % 90 % (42-76); Total Cells Counted 100
--- NOTE | 2018-08-23 09:25 | Consult Report ---
*Admission Date: 08/22/18 *Chief complaint: Fall with left hip pain *History of present illness: Patient is a pleasant 88-year-old female admitted from the emergency department for management of left hip fracture. She is giving a history of mechanical fall after slipping in the kitchen at home. Patient states she was walking in the kitchen wearing slippers when she lost her footing and fell down. No history of any dizziness, chest pain or shortness of breath. No history of any head injury or loss of consciousness. She has history of COPD requiring home oxygen therapy and history of coronary artery disease. Evaluation in the emergency room including a CT scan of her left hip showed a subcapital femoral neck fracture. Patient is on long-term steroids and is on home oxygen therapy. She also takes aspirin 81 mg daily. This morning she is complaining of pain in her left hip worse with any attempted movements. She says she lives by herself and is normally mobile independently. She has history of right proximal femur fracture which was treated by gamma nail about 6 years ago. She states she had the surgery in [place]. Review of Systems - Review of Systems Review of systems:: pertinent systems reviewed and negative unless documented below - Constitutional Denies fever(s), Denies headache(s) - Eyes Denies change in vision - ENT Denies abnormal hearing - *Cardiovascular Denies chest pain, Denies shortness of breath - *Respiratory Denies chest congestion, Denies cough, Denies shortness of breath - *Gastrointestinal Denies abdominal pain, Denies change in bowel habits - *Musculoskeletal Reports joint pain - *Neurologic Reports abnormal hearing [facility] History I have reviewed the patient's past medical history: Yes Medical History: Reports:: Chronic Obstructive Pulmonary Disease (COPD), Hyperlipidemia, Hypertension, Myocardial Infarction Denies:: Cancer, Diabetes Mellitus Type 1, Diabetes Mellitus Type 2, Internal Pacemaker, MRSA Other Medical History: Reports: Cataracts Laterality Cases: Right: Arthroscopy Hip, Total Hip Replacement Other Surgeries: Yes: Tubal Ligation. No: Pacemaker Amputation: No Fractures: No - *Social History Educational Level: Completed High School Smoking Status: Former smoker Tobacco Type: cigarettes Alcohol Intake: never Occupational Status: retired Housing: house Household Members: none - Psychiatric History Expresses thoughts of harming self/others: None Suicide Plan Description: No Plan Meds Home Medications Medication Instructions Recorded Confirmed Type Aspirin [Aspirin 81mg chewable 81 mg PO DAILY 01/30/18 08/22/18 History tab] Carvedilol [Carvedilol 6.25mg Tab] 6.25 mg PO BID 01/30/18 08/22/18 History diazePAM [Valium] 5 mg PO DAILYP PRN 01/30/18 08/23/18 History Cetirizine HCl 10 mg PO DAILY 08/23/18 08/23/18 History Potassium Chloride [Klor-con 20 20 meq PO DAILY 08/23/18 08/23/18 History mEq tablet] Allergies Allergy/AdvReac Type Severity Reaction Status Date / Time No Known Allergies Allergy Verified 01/24/18 07:20 Exam Vital signs and Labs for Last 24 Hours: Temp Pulse Resp BP Pulse Ox 99.0 F 84 18 104/58 L 93 L 08/23/18 08:00 08/23/18 08:00 08/23/18 08:00 08/23/18 08:00 08/23/18 08:00 Laboratory Results - last 24 hr 08/22/18 19:40: WBC 14.2 H, RBC 3.31 L, Hgb 9.5 L, Hct 29.7 L, MCV 89.6, MCH 28.6, MCHC 32.0, RDW 13.2, Plt Count 390, MPV 6.4 L, Neut % (Auto) 87.1 H, Lymph % (Auto) 7.7 L, [place] % (Auto) 3.2, Eos % (Auto) 1.8, Baso % (Auto) 0.3, Neut # (Auto) 12.4 H, Lymph # (Auto) 1.1, [place] # (Auto) 0.5, Eos # (Auto) 0.3, Baso # (Auto) 0.0, Total Counted 100, Neutrophils % (Manual) 89 H, Lymphocytes % (Manual) 9 L, Monocytes % (Manual) 1 L, Basophils % (Manual) 1.0, Platelet Estimate Normal, Anisocytosis 1+, Stomatocytes 1+ 08/22/18 19:40: PT 10.7, INR 1.04, APTT 27.8 08/22/18 19:40: Sodium 140, Potassium 3.5, Chloride 103, Carbon Dioxide 26, Anion Gap 14.5, BUN 41 H, Creatinine 2.08 H, Estimated Creat Clear 17, Estimated GFR 23 L, Est GFR ( Amer) 27 L, Glucose 106, Calcium 8.7, Total Bilirubin 0.3, AST 15, ALT 17, Alkaline Phosphatase 112, Total Protein 7.2, Albumin 3.2 L, Globulin 4.0 H, Albumin/Globulin Ratio 0.8 L 08/22/18 19:50: Urine Color Yellow, Urine Appearance Clear, Urine pH 6.0, Ur Specific [place] 1.020, Urine Protein Negative, Urine Glucose (UA) Negative, Urine Ketones Negative, Urine Blood Negative, Urine Nitrate Negative, Urine Bilirubin Negative, Urine Urobilinogen 0.2, Ur Leukocyte Esterase 1+ A, Urine RBC 3-5, Urine WBC 10-20, Ur Squamous Epith Cells 3-5, Urine Bacteria 1+, Urine Yeast 1+ 08/23/18 06:17: WBC 12.7 H, RBC 3.56 L, Hgb 10.2 L, Hct 31.7 L, MCV 89.2, MCH 28.7, MCHC 32.2, RDW 13.4, Plt Count 323, MPV 7.6, Neut % (Auto) 86.1 H, Lymph % (Auto) 7.1 L, [place] % (Auto) 3.7, Eos % (Auto) 2.8, Baso % (Auto) 0.2, Neut # (Auto) 10.9 H, Lymph # (Auto) 0.9, [place] # (Auto) 0.5, Eos # (Auto) 0.4, Baso # (Auto) 0.0, Total Counted 100, Neutrophils % (Manual) 90 H, Lymphocytes % (Manual) 6 L, Monocytes % (Manual) 4, Platelet Estimate Normal 08/23/18 06:17: Sodium 141, Potassium 3.9, Chloride 106, Carbon Dioxide 23, Anion Gap 15.9 H, BUN 38 H, Creatinine 1.89 H, Estimated Creat Clear 15, Estimated GFR 25 L, Est GFR ( Amer) 31 L, Glucose 107 H, Calcium 8.6 I & O for Last 24 hours: Intake & Output 08/20/18 08/21/18 08/22/18 08/23/18 11:59 11:59 11:59 11:59 Output Total 200 / 200 Balance -200 / -200 Weight 96 lb 8 oz Microbiology Reports for the Last 24 Hours: Microbiology 08/22/18 19:50 Urine,Catheterized Urine Culture - Preliminary - Constitutional no acute distress, thin, cooperative - *Routine HEENT Exam Head: Present: normocephalic, atraumatic Eye: Present: EOMI, PERRL ENT: Present: mucous membranes moist - *Routine Neck Exam Present: supple, full ROM, trachea midline. Absent: lymphadenopathy - *Routine Respiratory Exam Present: CTA bilaterally. Absent: respiratory distress - *Routine Cardiovascular Exam Present: RRR, Normal S1, Normal S2 - *Routine Abdominal Exam Present: soft, normoactive bowel sounds. Absent: organomegaly - *Routine Extremities Exam Comments: On examination of her lower extremities, there is shortening of the LEFT leg by about 1 inch compared to the right side. On examination of the LEFT hip the skin is intact and normal. No rashes or lesions noted. She is tender over the LEFT hip. Any attempted movements of the LEFT hip are painful. Thigh and calf are soft and nontender. Dorsalis pedis and posterior tibial pulses are palpable 1+ bilaterally. Sensation is grossly intact. She has good range of foot, ankle and toe movements. Imaging: X-rays and CT scan of her LEFT hip were reviewed along with the radiologist's report. The x-rays show a displaced subcapital fracture neck of LEFT femur. There appears to be some impaction at the fracture site but there is significant displacement, at least a Garden type III. The hip joint space is well-preserved. No other acute changes noted. There is a degree of osteopenia and some vascular calcification noted. Also noted is previous well-healed right proximal femur fracture internally fixed with a short cephalo-medullary nail. - *Routine Skin Exam Present: intact, warm, normal turgor - *Routine Neurological Exam Present: alert, oriented X3 - Routine Psychiatric Exam Present: normal affect, cooperative Results - Labs Result Diagrams: 08/24/18 06:50 08/24/18 07:30 Labs: Abnormal lab results 08/22/18 08/22/18 08/22/18 Range/Units 19:40 19:40 19:50 WBC 14.2 H (4.8-10.8) K/mm3 RBC 3.31 L (4.20-5.40) M/mm3 Hgb 9.5 L (12.2-16.2) g/dL Hct 29.7 L (37.0-47.0) % MPV 6.4 L (7.4-10.4) fl Neut % (Auto) 87.1 H (37.0-80.0) % Lymph % (Auto) 7.7 L (10-50) % Neut # (Auto) 12.4 H (1.8-7.8) K/mm3 Neutrophils % (Manual) 89 H (42-76) % Lymphocytes % (Manual) 9 L (10-50) % Monocytes % (Manual) 1 L (2-9) % Anion Gap (5-15) mEq/L BUN 41 H (7-18) mg/dL Creatinine 2.08 H (0.55-1.02) mg/dL Estimated GFR 23 L (>60) ml/min Est GFR ([facility] Amer) 27 L (>60) ML/MIN Glucose (74-106) mg/dL Albumin 3.2 L (3.4-5.0) gm/dL Globulin 4.0 H (1.3-3.2) gm/dl Albumin/Globulin Ratio 0.8 L (1.1-1.8) Ur Leukocyte Esterase 1+ A (Negative) 08/23/18 08/23/18 Range/Units 06:17 06:17 WBC 12.7 H (4.8-10.8) K/mm3 RBC 3.56 L (4.20-5.40) M/mm3 Hgb 10.2 L (12.2-16.2) g/dL Hct 31.7 L (37.0-47.0) % MPV (7.4-10.4) fl Neut % (Auto) 86.1 H (37.0-80.0) % Lymph % (Auto) 7.1 L (10-50) % Neut # (Auto) 10.9 H (1.8-7.8) K/mm3 Neutrophils % (Manual) 90 H (42-76) % Lymphocytes % (Manual) 6 L (10-50) % Monocytes % (Manual) (2-9) % Anion Gap 15.9 H (5-15) mEq/L BUN 38 H (7-18) mg/dL Creatinine 1.89 H (0.55-1.02) mg/dL Estimated GFR 25 L (>60) ml/min Est GFR ( Amer) 31 L (>60) ML/MIN Glucose 107 H (74-106) mg/dL Albumin (3.4-5.0) gm/dL Globulin (1.3-3.2) gm/dl Albumin/Globulin Ratio (1.1-1.8) Ur Leukocyte Esterase (Negative) H & H 08/22/18 08/23/18 Range/Units 19:40 06:17 Hgb 9.5 L 10.2 L (12.2-16.2) g/dL Hct 29.7 L 31.7 L (37.0-47.0) % Coagulation 08/22/18 Range/Units 19:40 INR 1.04 (0.9-1.1) All other labs normal. Assessment and Plan (1) Hip fracture due to osteoporosis Current visit: Yes Status: Acute Category: Medical Code(s): M80.059A - Age-related osteoporosis with current pathological fracture, unspecified femur, initial encounter for fracture (2) History of HI (myocardial infarction) Current visit: Yes Status: Acute Category: Medical Code(s): I25.2 - Old myocardial infarction (3) Chronic kidney disease, stage III (moderate) Current visit: Yes Status: Acute Category: Medical Code(s): N18.3 - Chronic kidney disease, stage 3 (moderate) (4) COPD (chronic obstructive pulmonary disease) Current visit: Yes Status: Acute Category: Medical Code(s): J44.9 - Chronic obstructive pulmonary disease, unspecified (5) Fall Current visit: Yes Status: Acute Category: Medical Code(s): W19.XXXA - Unspecified fall, initial encounter - Assessment and plan all Dx Assessment and Plan for all problems:: I have reviewed the clinical and imaging findings with the patient. I have discu ssed the diagnosis, natural history and management options in detail including both nonsurgical and surgical. I have recommended surgical remediation in the form of hemiarthroplasty LEFT hip. I explained the procedure, risks and benefits, alternatives and the expected postoperative course. I explained to the patient with copies of her x-rays and copies of x-rays of similar fractures treated surgically. The complications discussed include but are not limited to infection, injury to nerves and blood vessels, DVT and PE, femur fracture, limb length inequality, dislocation, implant failure, loosening, acetabular wear, osteolysis, periprosthetic femur fracture, heterotopic ossification, abductor weakness and a limp, incomplete relief of pain, incomplete return of function or motion, likely need for further surgery in future including revision, anesthetic/medical complications including heart attack, stroke, transfusion reactions and even . We discussed how any of these events can be de vastating. We have discussed nonsurgical alternatives as well. I've explained that the patient is at a significant surgical risk due to her age, medical co- morbidities and fragility of the bone. Patient seemed to understand and accept these risks. We have discussed nonsurgical alternatives as well. The nonoperative management would essentially consist of prolonged bed rest and traction (skeletal/skin) in bed and pain medication and has exceptionally poor outcome. This could result in nonunion and malunion of the fracture and almost certainly, the patient has a very high risk of decubitus ulcers, UTI, respiratory tract infections, DVT/PE and other complications from being bedridden. I have explained to her that the standard of care for this sort of injuries is surgical throughout the country unless the patient is very ill for surgical management. We also discussed the postoperative course including the rehab and physical therapy required. She lives by herself and may need to go to a short-term rehab facility after surgery. All her questions were answered and she verbalized a good understanding. I have noted Dr. Wheat observations and, she is cleared for surgery from a medical standpoint. Well also obtain a preoperative anesthetic evaluation. I have recommended- Type and screen Nothing by mouth Continue IV fluids DVT prophylaxis as per protocol Analgesia as needed Consent patient for a hemiarthroplasty LEFT hip. Order 2 g of IV Ancef for preoperative prophylaxis to start half an hour before surgery. I am planning to take her for surgery at the earliest opportunity today. Thank you for the opportunity to take part in the care of this very pleasant patient.
--- NOTE | 2018-08-23 15:58 | Progress Note ---
[facility] Anesthesia Checklist - Patient Identification Patient Identification: Arm Band, Verbal (Name & ) - Structural Data Admitted From: Inpatient Planned Operative Procedure/s: orif l hip Consent for Planned Operative Procedure(s) Verified: Yes Verified Documents: History and Physical - NPO Status Verified Time NPO: 00:00 - Chart Verification Results Verified: CBC, BMP - Additional verifications Patient : No Anesthesia Reactions: No Hx Blood Transfusions: No Blood Transfusion Reaction: No Cephalosporin Allergy: No Previous Colonoscopy: No - Cardiovascular Assessment Heart Sounds: S1 & S2 Pulse Strength: Baseline Pulse Rhythm: Regular Peripheral Edema: No - Airway Assessment C-Spine Mobility Assessed: Yes TMJ Mobility Assessed: Yes Dentition: Edentulous - Neurological Assessment Level of Consciousness: Awake, Alert, Appropriate Hx Seizures: No Numbness or tingling in extremities: No - Anesthesia Plan Anesthesia Risk discussed: Yes ASA Class: III Anesthesia Type: Spinal [facility] History Medical History: Reports:: Chronic Obstructive Pulmonary Disease (COPD), Hyperlipidemia, Hypertension, Myocardial Infarction Denies:: Cancer, Diabetes Mellitus Type 1, Diabetes Mellitus Type 2, Internal Pacemaker, MRSA Other Medical History: Reports: Cataracts Laterality Cases: Right: Arthroscopy Hip, Total Hip Replacement Other Surgeries: Yes: Tubal Ligation. No: Pacemaker Amputation: No Fractures: No - *Social History Educational Level: Completed High School Smoking Status: Former smoker Tobacco Type: cigarettes Alcohol Intake: never Occupational Status: retired Housing: house Household Members: none - Psychiatric History Expresses thoughts of harming self/others: None Suicide Plan Description: No Plan
--- NOTE | 2018-08-23 15:59 | Progress Note ---
[facility] Anesthesia Record Part I Intake, IV Amount: 1,200 Estimated blood loss (mL): 10 Urine output (mL): 100 Blood Products used (#): none Blood Pressure: 91/52 SaO2: 90 Pulse Rate: 109 Respiratory Rate: 22 Temperature: 98.2 F Patient is:: Drowsy, Nasal O2, Stable Stable to PACU at:: 15:56
--- NOTE | 2018-08-23 16:02 | Progress Note ---
[facility] Anesthesia Record Part II Discharge Time: 16:26 Destination: Medical Surgical Department PACU nurse assessment reviewed?: Yes Patient Condition:: Good Anesthesia Complications:: None
--- NOTE | 2018-08-23 16:47 | Operative Note ---
Date of procedure: 08/23/18 Pre-op Diagnosis:: Closed, displaced subcapital femoral neck fracture, left Post-op Diagnosis:: Same Procedure performed:: Uncemented bipolar hemiarthroplasty, left hip Surgeon:: Franklin Snider MD Home Appliance Installer(s):: Elsie Ospina GRANTS DIRECTOR:: Ervin Ray Anesthesia: spinal Estimated blood loss (mL): 200 Clinical Note:: Patient is an 88-year-old female who sustained a displaced subcapital fracture neck of left femur following a mechanical fall. A hemiarthroplasty is indicated to relieve pain and restore function. The operation is clinically indicated and is the standard of care for this type of fracture. Please refer to my consult note for full details. Operative findings:: Displaced sub capital femoral neck fracture of the left hip as noted on the preoperative hip x-rays. The articular cartilage of the acetabulum is well maintained without evidence of any significant arthritis. The proximal femur bone quality is soft/osteoporotic. Operative note:: On the day of the procedure the patient was met on the floor, and a physical examination was performed. The operating side and site were marked and initialed by me. I reviewed the diagnosis, natural history and management options in detail including both the nonsurgical and surgical. Given the nature of the fracture, I have recommended surgery in the form of a hemiarthroplasty of the left hip. I discussed the procedure, risks and benefits, alternatives, potential complications and expected outcomes with the patient. The complications discussed include but are not limited to infection, injury to nerves and blood vessels, DVT and PE, femur fracture, limb length inequality, dislocation, implant failure, loosening, acetabular wear, osteolysis, periprosthetic femur fracture, heterotopic ossification, abductor weakness and a limp, incomplete relief of pain, incomplete return of function or motion, likely need for further surgery in future including revision, anesthetic/medical complications including heart attack, stroke, transfusion reactions and even . We discussed how any of these events can be devastating. We have discussed nonsurgical alternatives as well. We also discussed the postoperative course including the rehab and physical therapy required. Patient understood the risks, agreed to proceed with surgery, signed the consent form and no guarantees or assurances were given or implied. The patient was brought to the operating room and a spinal anesthesia was administered by the inspection clerk. The patient was then transferred onto the operating table and positioned in the right lateral decubitus position with the left hip facing upwards. All the bony prominences were well-padded. The left lower extremity was then prepped and draped in the usual sterile fashion. The entire operative team used isolation suits and room traffic was controlled. The surgical landmarks and incision was marked over the skin with a marking pen. Ioban sterile drape was used to cover the operative site and isolate the perineum completely from the operative field. Administration of 2 g of prophylactic IV Ancef was confirmed with the anesthetic team. A preprocedure timeout was performed as per hospital protocol. A posterior approach was used to the hip joint. An electrocautery was used for hemostasis. The skin incision was made centering over the posterior border of the greater trochanter extending posteriorly in a curvilinear fashion across the buttock. The dissection was carried through subcutaneous tissue down to the fascia joshua. The fascia joshua and gluteus fascia were split and a Charnley retractor was placed. The trochanteric bursa was then removed with blunt dissection. The sciatic nerve was identified and kept out of the harm's way throughout the rest of the procedure. The hip was then internally rotated and the fat over the external rotators was cleared with a sponge. The short external rotator muscles were identified, a tag stitch was placed near their insertion, and they were divided close to the greater trochanter with electrocautery. This exposed the joint capsule which was opened with a T shaped incision and tag stitches were applied to both the leaves of the capsule. Upon entering the joint capsule, a fracture hematoma was noted as well as the displaced sub-capital femoral neck fracture. A corkscrew was then used to remove the femoral head from the acetabulum and passed to the senior technical business analyst to be sized on the back table. It measured 47 mm. All bony fragments were then removed from the acetabulum and surrounding soft tissue. The acetabulum was then inspected and found to be clear. The articular cartilage was noted to be well maintained without any significant arthritic changes. Our attention was then turned to the preparation of proximal femur where a cutting guide was used to olya the neck for the femoral neck cut. An oscillating saw was then used to finish the femoral cut. A box osteotome was then used to remove the bone from the proximal femur. A canal entry reamer was then used to open the femoral canal paying close attention to keep the reamer in a lateral position. Next we performed femoral broaching starting with a small broach, making efforts to lateralize the broach. The broaching was continued sequentially up to size 8 broach. We found this to be a very good fit without any rocking. We then used the calcar reamer to finish the femoral preparation. We then performed a trial reduction using the size 8 broach, +0 neck and 47 mm bipolar head. The hip was noted to be tight and difficult to reduce; therefore, we again trialed with a 127 degree -4 neck. The hip was taken through range of motion and tested in adduction, internal and external rotation as well as with a shuck and posteriorly directed force on a flexed hip. It was noted that the hip was very stable with these trial components throughout the range of motion. We also noted that the limb lengths were equal with these components. Next, the trial components were removed and the femur and acetabulum were irrigated with pulse lavage and suctioned out. The size 8 Mely accolade 127 degree femoral stem was introduced and seated to the appropriate level. This gave us a very good fit without any play whatsoever. We then irrigated and dried the [place] taper and then placed the definitive 47 mm bipolar femoral head assembly on the stem and tapped into place. The hip was then reduced and again taken through range of motion and noted to be stable. The limb length was also well corrected. The hip joint was then soaked with dilute Betadine solution for 3 minutes, then suctioned out and irrigated with normal saline pulse lavage. At this point I also injected the capsule and soft tissue with the local anesthetic cocktail (0.5 percent bupivacaine 200 mg +10 mg of morphine +600 g of epinephrine +750 mg of cefuroxime +30 mg of ketorolac diluted in normal saline to make up a total volume of 120 mL). We confirmed good hemostasis and then proceeded to close the wound. The capsule was closed with interrupted #1 Vicryl sutures followed by reattachment of the external rotators to the greater trochanter with #1 Vicryl sutures. Next the fascia joshua and the gluteus fascia were closed with #1 Vicryl sutures. The wound was then again irrigated copiously with pulse lavage and suctioned dry. Next the subcutaneous tissues were closed with 2-0 Vicryl sutures. The skin was closed with 4-0 Monocryl subcuticular sutures, Dermabond and Steri-Strips. Sterile dressings were applied consisting of Silverlon and ABDs as well as adhesive tape]. No drains were placed. The patient was then transferred from the operating table onto the bed. The leg lengths were again checked in supine position and noted to be equal. An abduction pillow was placed between the legs. The patient was then transported to the postoperative recovery area in a stable condition. Patient tolerated the procedure well and there were no immediate complications. Swab, needle and instrument counts were correct according to the scrub team at the end of the procedure. Portable X-rays of the left hip AP and lateral views were obtained in the recovery area and noted to be satisfactory. Postoperatively, continue standard precautions for a posterior hip approach. To mobilize weightbearing as tolerated with the help of a walker by physical therapist and to commence standard physical therapy and precautions for a posterior hip approach. Implant: [employer] Accolade TMGF plus 127 degree neck angle V 40, hip stem- size 8 Atlantic UHR universal head bipolar component-47 mm outer diameter/28 mm inner diameter Atlantic LFIT V40 femoral head, 28 mm outer diameter, -4 mm offset (Industry brewery representative: John Ministerio from [employer]) Condition: stable Disposition: PACU Specimens:: None Complications:: None
--- NOTE | 2018-08-23 17:20 | Progress Note ---
Subjective Date: 08/23/18 Time: 17:10 Principal diagnosis: Status post hemiarthroplasty, left hip Interval history: Patient is status post LEFT hip bipolar hemiarthroplasty, post op day #0. Patient underwent an uncomplicated bipolar hemiarthroplasty of the left hip earlier today. Her family (son and [id number] ) are with her in the room. She says she is doing well and appears comfortable. Reports no pain or discomfort. PN: Obj Ex Vital signs: Temp Pulse Resp BP Pulse Ox 97.8 F 99 H 18 94/52 L 97 08/23/18 17:00 08/23/18 17:00 08/23/18 17:00 08/23/18 17:00 08/23/18 17:00 Narrative: Exam General appearance: Alert, awake, no acute distress Cardiovascular: regular rate & rhythm, normal peripheral pulses Respiratory: Breathing is nonlabored ABD: soft and non tender Genitourinary: Catheter in situ. On examination of the lower extremities the limb lengths are equal. Abduction pillow is between the legs and is strapped appropriately. On examination of the LEFT hip the dressings are clean, dry and intact. No evidence of any bleeding or soakage of the dressings is noted. Distal pulses are 1+. She is wiggling the foot and ankle actively. - Urinary Catheter Management James Cath placed during this visit: yes Urethral indwelling: Yes Reason for continuing: Surgical procedure Insertion date: 08/22/18 Insertion time: 19:55 Progress Note: A&P (1) Hip fracture due to osteoporosis Status: Acute Current Visit: Yes (2) History of [place] (myocardial infarction) Status: Acute Current Visit: Yes (3) Chronic kidney disease, stage III (moderate) Status: Acute Current Visit: Yes (4) COPD (chronic obstructive pulmonary disease) Status: Acute Current Visit: Yes (5) Fall Status: Acute Current Visit: Yes Assessment and Plan for All Diagnoses:: I have reviewed the clinical and operative findings and procedure performed with the patient and her family. I have given them a paper copy of the postoperative hip x-ray. Continue standard postoperative care and close monitoring overnight. Patient can be mobilized weightbearing as tolerated on the LEFT side by physical therapy with the walker on the first postoperative day if medically appropriate. Continue DVT prophylaxis. Continue abduction pillow when in bed and continue sta ndard precautions for the posterior approach hip replacement. Continue medical management as per Dr. Wheat.
--- NOTE | 2018-08-24 07:00 | Progress Note ---
Internal Medicine - PN: Subj *Date: 08/24/18 *Time: 06:57 Interval history: Patient underwent bipolar hemiarthroplasty placement to repair her hip fracture yesterday. Postoperatively she has been confused. She did require mittens to protect her skin as she was scratching at her face and arms. She dislodged her IV. She will not keep her nasal cannula in place. Exam Vital signs and Labs for Last 24 Hours: Temp Pulse Resp BP Pulse Ox 98.6 F 100 H 15 98/61 L 95 08/24/18 04:00 08/24/18 04:00 08/24/18 04:00 08/24/18 04:00 08/24/18 04:00 Laboratory Results - last 24 hr 08/23/18 06:17: WBC 12.7 H, RBC 3.56 L, Hgb 10.2 L, Hct 31.7 L, MCV 89.2, MCH 28.7, MCHC 32.2, RDW 13.4, Plt Count 323, MPV 7.6, Neut % (Auto) 86.1 H, Lymph % (Auto) 7.1 L, [place] % (Auto) 3.7, Eos % (Auto) 2.8, Baso % (Auto) 0.2, Neut # (Auto) 10.9 H, Lymph # (Auto) 0.9, [place] # (Auto) 0.5, Eos # (Auto) 0.4, Baso # (Auto) 0.0, Total Counted 100, Neutrophils % (Manual) 90 H, Lymphocytes % (Manual) 6 L, Monocytes % (Manual) 4, Platelet Estimate Normal 08/23/18 06:17: Sodium 141, Potassium 3.9, Chloride 106, Carbon Dioxide 23, Anion Gap 15.9 H, BUN 38 H, Creatinine 1.89 H, Estimated Creat Clear 15, Estimated GFR 25 L, Est GFR ( Amer) 31 L, Glucose 107 H, Calcium 8.6 08/23/18 11:03: Blood Type O Positive, Antibody Screen Negative I & O for Last 24 hours: Intake & Output 08/21/18 08/22/18 08/23/18 08/24/18 11:59 11:59 11:59 11:59 Intake Total 1736 / 1736 Output Total 200 / 200 135 / 135 Balance -200 / -200 1601 / 1601 Weight 105 lb 2 oz 105 lb 2.004 oz Microbiology Reports for the Last 24 Hours: Microbiology 08/22/18 19:50 Urine,Catheterized Urine Culture - Preliminary Narrative: Patient awakens. She will answer questions. She denies pain. She is in no respiratory distress. Heart has a regular rate and rhythm. Lungs are distant with dry crackles at the left lung base. Assessment and Plan (1) Hip fracture due to osteoporosis Current visit: Yes Status: Acute Category: Medical Code(s): M80.059A - Age-related osteoporosis with current pathological fracture, unspecified femur, initial encounter for fracture (2) History of [place] (myocardial infarction) Current visit: Yes Status: Acute Category: Medical Code(s): I25.2 - Old myocardial infarction (3) Chronic kidney disease, stage III (moderate) Current visit: Yes Status: Acute Category: Medical Code(s): N18.3 - Chronic kidney disease, stage 3 (moderate) (4) COPD (chronic obstructive pulmonary disease) Current visit: Yes Status: Acute Category: Medical Code(s): J44.9 - Chronic obstructive pulmonary disease, unspecified (5) Fall Current visit: Yes Status: Acute Category: Medical Code(s): W19.XXXA - Unspecified fall, initial encounter - Assessment and plan all Dx Assessment and Plan for all problems:: 1. I do believe patient is going to need some time to become more awake and alert. She might be able to participate with PT by this afternoon 2. Lovenox for DVT prophylaxis 3. Incentive spirometer and chest x-ray today
[2018-08-24 07:16] LABS: Basophils # 0.1 K/mm3 (0-0.2); Basophils % 0.3 % (0.1-2.0); Eosinophils # 0.1 K/mm3 (0.0-0.4); Eosinophils % 0.4 % (0.1-12.0); Hematocrit 28.7 % (37.0-47.0); Hemoglobin 9.1 g/dL (12.2-16.2); Lymphocytes # 1.6 K/mm3 (0.7-4.5); Lymphocytes % 9.1 % (10-50); Mean Corpuscular HGB Conc 31.5 g/dL (31.8-35.4); Mean Corpuscular Hemoglobin 28.5 pg (27.0-31.2); Mean Corpuscular Volume 90.6 fl (81-99); Mean Platelet Volume 8.4 fl (7.4-10.4); Monocytes # 0.9 K/mm3 (0.1-1.0); Monocytes % 4.9 % (1.7-9.3); Neutrophils # 14.9 K/mm3 (1.8-7.8); Neutrophils % 85.2 % (37.0-80.0); Platelet Count 341 K/mm3 (142-424); Red Blood Count 3.17 M/mm3 (4.20-5.40); Red Cell Distribution Width 13.5 % (11.5-17.5); White Blood Count 17.5 K/mm3 (4.8-10.8)
[2018-08-24 07:59] LABS: Albumin Level 2.7 gm/dL (3.4-5.0); Albumin/Globulin Ratio 0.8 (1.1-1.8); Anion Gap 26.1 mEq/L (5-15); Bilirubin,Total 0.4 mg/dL (0.2-1.0); Calcium 8.5 mg/dL (8.5-10.1); Globulin 3.4 gm/dl (1.3-3.2); Potassium 5.1 mmoL/L (3.5-5.1); Total Protein,Serum 6.1 gm/dL (6.4-8.2)
[2018-08-24 08:59] LABS: Eosinophils % 1 % (0-3); Lymphocytes % 6 % (10-50); Monocytes % 6 % (2-9); Neutrophils % 86 % (42-76); Total Cells Counted 100
--- NOTE | 2018-08-24 17:02 | Progress Note ---
Subjective Date: 08/24/18 Time: 12:45 Principal diagnosis: Status post hemiarthroplasty, left hip Interval history: Patient is status post LEFT hip bipolar hemiarthroplasty, post op day #1. Patient is confused and it is difficult to communicate with her. She states she is not in any pain. Staff nurse reports that they had to put mittens on her hands to prevent herself scratching over the face. She is being treated for pneumonia with IV Levaquin. PN: Obj Ex Vital signs: Temp Pulse Resp BP Pulse Ox 97.7 F 58 L 18 104/72 L 91 L 08/24/18 16:00 08/24/18 16:00 08/24/18 16:00 08/24/18 16:00 08/24/18 16:00 Narrative: Intake & Output 08/22/18 08/23/18 08/24/18 08/25/18 11:59 11:59 11:59 11:59 Intake Total 1736 / 1736 0 / 0 Output Total 200 / 200 135 / 135 Balance -200 / -200 1601 / 1601 0 / 0 Weight 105 lb 2 oz 105 lb 2.004 oz Laboratory Results - last 24 hr 08/24/18 06:50: WBC 17.5 H D, RBC 3.17 L, Hgb 9.1 L, Hct 28.7 L, MCV 90.6, MCH 28.5, MCHC 31.5 L, RDW 13.5, Plt Count 341, MPV 8.4, Neut % (Auto) 85.2 H, Lymph % (Auto) 9.1 L, [place] % (Auto) 4.9, Eos % (Auto) 0.4, Baso % (Auto) 0.3, Neut # (Auto) 14.9 H, Lymph # (Auto) 1.6, [place] # (Auto) 0.9, Eos # (Auto) 0.1, Baso # (Auto) 0.1, Total Counted 100, Neutrophils % (Manual) 86 H, Band Neutrophils % 1.0, Lymphocytes % (Manual) 6 L, Monocytes % (Manual) 6, Eosinophils % (Manual) 1, Platelet Estimate Normal, Poikilocytosis 1+, [place] Cells 1+ 08/24/18 07:30: Sodium 144, Potassium 5.1 D, Chloride 108 H, Carbon Dioxide 15 L D, Anion Gap 26.1 H, BUN 43 H, Creatinine 2.52 H D, Estimated Creat Clear 12, Estimated GFR 18 L*, Est GFR ( Amer) 22 L D, Glucose 86, Calcium 8.5, Total Bilirubin 0.4, AST 37 D, ALT 15, Alkaline Phosphatase 98, Total Protein 6.1 L, Albumin 2.7 L D, Globulin 3.4 H, Albumin/Globulin Ratio 0.8 L 08/24/18 08:15: B-Natriuretic Peptide 2020 H Exam General appearance: Alert, awake, confused Cardiovascular: regular rate & rhythm, normal peripheral pulses Respiratory: Breathing is nonlabored ABD: soft and non tender Genitourinary: Catheter in situ. On examination of the lower extremities the limb lengths are equal. On examination of the LEFT hip the dressings are clean, dry and intact. No evidence of any bleeding or soakage of the dressings is noted. Distal pulses are 1+. She is wiggling the foot and ankle actively. - Urinary Catheter Management James Cath placed during this visit: yes Urethral indwelling: Yes Reason for continuing: Surgical procedure Insertion date: 08/22/18 Insertion time: 19:55 Progress Note: A&P (1) Hip fracture due to osteoporosis Status: Acute Current Visit: Yes (2) History of [place] (myocardial infarction) Status: Acute Current Visit: Yes (3) Chronic kidney disease, stage III (moderate) Status: Acute Current Visit: Yes (4) COPD (chronic obstructive pulmonary disease) Status: Acute Current Visit: Yes (5) Fall Status: Acute Current Visit: Yes Assessment and Plan for All Diagnoses:: I have reviewed the medical progress note and discussed with the nursing staff regarding her condition. Continue standard postoperative care and close monitoring. Patient can be mobilized weightbearing as tolerated on the LEFT side by physical therapy with the walker when medically appropriate. Continue DVT prophylaxis. Continue abduction pillow when in bed and continue standard precautions for the posterior approach hip replacement. Continue medical management as per Dr. Wheat.
[2018-08-25 06:23] LABS: Anion Gap 23.3 mEq/L (5-15); Potassium 4.3 mmoL/L (3.5-5.1)
[2018-08-25 06:39] LABS: Calcium 7.5 mg/dL (8.5-10.1)
--- NOTE | 2018-08-25 07:10 | Progress Note ---
Internal Medicine - PN: Subj *Date: 08/25/18 *Time: 07:07 Interval history: Patient today was uneventful yesterday but in the evening her blood pressure dropped to 80 systolic and would not rise despite fluid bolus and she was transferred to the stepdown unit and placed on Levophed drip to keep her systolic blood pressure above 100. She has been maintained on IV fluids. This morning she is a little more awake and alert compared to yesterday. She denies pain and shortness of breath. Chest x-ray performed yesterday does show some fluid overload as well as atelectasis. Patient met sepsis criteria and was started on Levaquin. Since initiation of Levophed drip patient has been weaned down slightly. She denies hunger Exam Vital signs and Labs for Last 24 Hours: Temp Pulse Resp BP Pulse Ox 98.2 F 94 H 27 H 107/59 L 96 08/25/18 00:45 08/25/18 06:25 08/25/18 04:07 08/25/18 06:00 08/25/18 06:25 Laboratory Results - last 24 hr 08/24/18 06:50: WBC 17.5 H D, RBC 3.17 L, Hgb 9.1 L, Hct 28.7 L, MCV 90.6, MCH 28.5, MCHC 31.5 L, RDW 13.5, Plt Count 341, MPV 8.4, Neut % (Auto) 85.2 H, Lymph % (Auto) 9.1 L, [place] % (Auto) 4.9, Eos % (Auto) 0.4, Baso % (Auto) 0.3, Neut # (Auto) 14.9 H, Lymph # (Auto) 1.6, [place] # (Auto) 0.9, Eos # (Auto) 0.1, Baso # (Auto) 0.1, Total Counted 100, Neutrophils % (Manual) 86 H, Band Neutrophils % 1.0, Lymphocytes % (Manual) 6 L, Monocytes % (Manual) 6, Eosinophils % (Manual) 1, Platelet Estimate Normal, Poikilocytosis 1+, [place] Cells 1+ 08/24/18 07:30: Sodium 144, Potassium 5.1 D, Chloride 108 H, Carbon Dioxide 15 L D, Anion Gap 26.1 H, BUN 43 H, Creatinine 2.52 H D, Estimated Creat Clear 12, Estimated GFR 18 L*, Est GFR ( Amer) 22 L D, Glucose 86, Calcium 8.5, Total Bilirubin 0.4, AST 37 D, ALT 15, Alkaline Phosphatase 98, Total Protein 6.1 L, Albumin 2.7 L D, Globulin 3.4 H, Albumin/Globulin Ratio 0.8 L 08/24/18 08:15: B-Natriuretic Peptide 2020 H 08/24/18 23:08: POC Glucose 73 08/25/18 05:21: Sodium 146 H, Potassium 4.3, Chloride 113 H, Carbon Dioxide 14 L , Anion Gap 23.3 H, BUN 54 H D, Creatinine 2.70 H, Estimated Creat Clear 11, Estimated GFR 17 L*, Est GFR ( Amer) 20 L, Glucose 98, Calcium 7.5 L D I & O for Last 24 hours: Intake & Output 08/22/18 08/23/18 08/24/18 08/25/18 11:59 11:59 11:59 11:59 Intake Total 1736 / 1736 3182 / 3182 Output Total 200 / 200 135 / 135 50 / 50 Balance -200 / -200 1601 / 1601 3132 / 3132 Weight 105 lb 2 oz 105 lb 2.004 oz Microbiology Reports for the Last 24 Hours: Microbiology 08/22/18 19:50 Urine,Catheterized Urine Culture - Preliminary Yeast Narrative: Elderly female. She is in no respiratory distress. She is lying with her neck extended and mouth open despite nasal cannula being in place. Oropharynx is dry from mouth being. Lungs have bilateral crackles. Heart has a regular rate and rhythm. Abdomen is thin and soft. Patient is neurovascularly intact in both feet. Assessment and Plan (1) Hip fracture due to osteoporosis Current visit: Yes Status: Acute Category: Medical Code(s): M80.059A - Age-related osteoporosis with current pathological fracture, unspecified femur, initial encounter for fracture (2) History of [place] (myocardial infarction) Current visit: Yes Status: Acute Category: Medical Code(s): I25.2 - Old myocardial infarction (3) Chronic kidney disease, stage III (moderate) Current visit: Yes Status: Acute Category: Medical Code(s): N18.3 - Chronic kidney disease, stage 3 (moderate) (4) COPD (chronic obstructive pulmonary disease) Current visit: Yes Status: Acute Category: Medical Code(s): J44.9 - Chronic obstructive pulmonary disease, unspecified (5) Fall Current visit: Yes Status: Acute Category: Medical Code(s): W19.XXXA - Unspecified fall, initial encounter (6) Chronic anemia Current visit: Yes Status: Acute Category: Medical Code(s): D64.9 - Anemia, unspecified (7) Acute kidney injury Current visit: No Status: Acute Category: Medical Code(s): N17.9 - Acute kidney failure, unspecified (8) Yeast UTI Current visit: Yes Status: Acute Category: Medical Code(s): B37.49 - Other urogenital candidiasis - Assessment and plan all Dx Assessment and Plan for all problems:: 1. Continue Levophed with repeating attempts to wean to keep systolic blood pressure around 110 2. Start intravenous fluconazole 3. Reassess swallowing
[2018-08-25 07:11] LABS: Basophils % 0.2 % (0.1-2.0); Eosinophils % 0.1 % (0.1-12.0); Hematocrit 24.8 % (37.0-47.0); Lymphocytes # 0.7 K/mm3 (0.7-4.5); Lymphocytes % 5.5 % (10-50); Mean Corpuscular HGB Conc 31.5 g/dL (31.8-35.4); Mean Corpuscular Hemoglobin 28.8 pg (27.0-31.2); Mean Corpuscular Volume 91.2 fl (81-99); Mean Platelet Volume 8.1 fl (7.4-10.4); Monocytes # 0.6 K/mm3 (0.1-1.0); Monocytes % 4.7 % (1.7-9.3); Neutrophils # 11.6 K/mm3 (1.8-7.8); Neutrophils % 89.6 % (37.0-80.0); Platelet Count 290 K/mm3 (142-424); Red Blood Count 2.72 M/mm3 (4.20-5.40); Red Cell Distribution Width 13.8 % (11.5-17.5); White Blood Count 12.9 K/mm3 (4.8-10.8)
[2018-08-25 07:15] LABS: Hemoglobin 7.8 g/dL (12.2-16.2)
[2018-08-25 10:47] LABS: Lymphocytes % 5 % (10-50); Monocytes % 3 % (2-9); Neutrophils % 88 % (42-76); Total Cells Counted 100
--- NOTE | 2018-08-25 13:25 | Progress Note ---
Subjective Date: 08/25/18 Time: 12:30 Principal diagnosis: Status post hemiarthroplasty, left hip Interval history: Patient is status post LEFT hip bipolar hemiarthroplasty, post op day #2. Patient says she is doing well and reports no pain or discomfort. She became hy potensive yesterday evening and was transferred to the stepdown unit and placed on Levophed drip. Nursing staff reports that her blood pressure has been stable today and they are trying to wean her off the Levophed drip. Patient is on Levaquin for chest infection. Today she is also started on fluconazole for fungal UTI. Her H&H this morning were low and she is being transfused PRBC. Family is aware of her condition. PN: Obj Ex Vital signs: Temp Pulse Resp BP Pulse Ox 99.3 F 95 H 26 H 106/60 L 98 08/25/18 11:50 08/25/18 11:50 08/25/18 11:50 08/25/18 11:50 08/25/18 11:50 Narrative: Laboratory Results - last 24 hr 08/23/18 11:03: Blood Type O Positive, Antibody Screen Negative, Crossmatch (AHG) See Detail 08/24/18 23:08: POC Glucose 73 08/25/18 05:21: WBC 12.9 H D, RBC 2.72 L, Hgb 7.8 L*, Hct 24.8 L, MCV 91.2, MCH 28.8, MCHC 31.5 L, RDW 13.8, Plt Count 290, MPV 8.1, Neut % (Auto) 89.6 H, Lymph % (Auto) 5.5 L, [place] % (Auto) 4.7, Eos % (Auto) 0.1, Baso % (Auto) 0.2, Neut # (Auto) 11.6 H, Lymph # (Auto) 0.7, [place] # (Auto) 0.6, Eos # (Auto) 0.0, Baso # (Auto) 0.0, Total Counted 100, Neutrophils % (Manual) 88 H, Band Neutrophils % 4.0, Lymphocytes % (Manual) 5 L, Monocytes % (Manual) 3, Platelet Estimate Normal, [place] Cells 1+ 08/25/18 05:21: Sodium 146 H, Potassium 4.3, Chloride 113 H, Carbon Dioxide 14 L , Anion Gap 23.3 H, BUN 54 H D, Creatinine 2.70 H, Estimated Creat Clear 11, Estimated GFR 17 L*, Est GFR ( Amer) 20 L, Glucose 98, Calcium 7.5 L D 08/25/18 09:57: Blood Type Confirm O Positive Intake & Output 08/23/18 08/24/18 08/25/18 08/26/18 11:59 11:59 11:59 11:59 Intake Total 1736 / 1736 3348.065 / 3348.065 60 / 60 Output Total 200 / 200 135 / 135 50 / 50 Balance -200 / -200 1601 / 1601 3298.065 / 3298.065 60 / 60 Weight 105 lb 2 oz 105 lb 2.004 oz Exam General appearance: Alert, awake, answering questions appropriately. Getting oxygen with nasal cannula. Cardiovascular: regular rate & rhythm, normal peripheral pulses Respiratory: Breathing is nonlabored; no acute respiratory distress ABD: soft and non tender Genitourinary: Catheter in situ. On examination of the lower extremities the limb lengths are equal. On examination of the LEFT hip the dressings are clean, dry and intact. I have changed the dressings today and the incision looks healthy. No evidence of any bleeding or soakage of the dressings is noted. Distal pulses are 1+. She is wiggling the foot and ankle actively. - Urinary Catheter Management James Cath placed during this visit: yes Urethral indwelling: Yes Reason for continuing: Surgical procedure Insertion date: 08/22/18 Insertion time: 19:55 Progress Note: A&P (1) Hip fracture due to osteoporosis Status: Acute Current Visit: Yes (2) History of [place] (myocardial infarction) Status: Acute Current Visit: Yes (3) Chronic kidney disease, stage III (moderate) Status: Acute Current Visit: Yes (4) COPD (chronic obstructive pulmonary disease) Status: Acute Current Visit: Yes (5) Fall Status: Acute Current Visit: Yes (6) Chronic anemia Status: Acute Current Visit: Yes (7) Acute kidney injury Status: Acute Current Visit: No (8) Yeast UTI Status: Acute Current Visit: Yes Assessment and Plan for All Diagnoses:: I have reviewed the medical progress note and discussed with the nursing staff regarding her condition. Patient's family members are aware of her condition. Continue standard postoperative care and close monitoring. Patient can be mobilized weightbearing as tolerated on the LEFT side by physical therapy with the walker when medically appropriate. Continue DVT prophylaxis. Continue abduction pillow when in bed and continue standard precautions for the posterior approach hip replacement. Continue medical management as per Dr. Wheat.
[2018-08-25 17:08] LABS: Hematocrit 41.5 % (37.0-47.0)
[2018-08-25 17:18] LABS: Hemoglobin 13.2 g/dL (12.2-16.2)
[2018-08-26 07:02] LABS: Basophils % 0.2 % (0.1-2.0); Eosinophils % 0.4 % (0.1-12.0); Hematocrit 39.5 % (37.0-47.0); Hemoglobin 12.4 g/dL (12.2-16.2); Lymphocytes # 0.8 K/mm3 (0.7-4.5); Lymphocytes % 6.5 % (10-50); Mean Corpuscular HGB Conc 31.4 g/dL (31.8-35.4); Mean Corpuscular Hemoglobin 30.5 pg (27.0-31.2); Mean Corpuscular Volume 97.1 fl (81-99); Mean Platelet Volume 7.6 fl (7.4-10.4); Monocytes # 0.6 K/mm3 (0.1-1.0); Monocytes % 4.9 % (1.7-9.3); Neutrophils # 10.5 K/mm3 (1.8-7.8); Neutrophils % 87.9 % (37.0-80.0); Platelet Count 229 K/mm3 (142-424); Red Blood Count 4.06 M/mm3 (4.20-5.40); Red Cell Distribution Width 14.3 % (11.5-17.5)
[2018-08-26 07:23] LABS: Anion Gap 22.7 mEq/L (5-15); Potassium 4.7 mmoL/L (3.5-5.1)
[2018-08-26 07:26] LABS: Lymphocytes % 7 % (10-50); Monocytes % 1 % (2-9); Neutrophils % 92 % (42-76); Nucleated Red Blood Cells 1; RBC Morphology Normal; Total Cells Counted 100
--- NOTE | 2018-08-26 07:52 | Progress Note ---
Internal Medicine - PN: Subj *Date: 08/26/18 *Time: 07:50 Interval history: Patient more awake and alert at present. She denies pain. She received 2 units of PRBC's yesterday with significant rise in her H/H. She has been unable to swallow since surgery. Exam Vital signs and Labs for Last 24 Hours: Temp Pulse Resp BP Pulse Ox 97.1 F L 92 H 20 127/72 93 L 08/26/18 07:36 08/26/18 07:36 08/26/18 07:36 08/26/18 07:36 08/26/18 07:36 Laboratory Results - last 24 hr 08/23/18 11:03: Blood Type O Positive, Antibody Screen Negative, Crossmatch (AHG) See Detail 08/25/18 05:21: Total Counted 100, Neutrophils % (Manual) 88 H, Band Neutrophils % 4.0, Lymphocytes % (Manual) 5 L, Monocytes % (Manual) 3, Platelet Estimate Normal, [place] Cells 1+ 08/25/18 09:57: Blood Type Confirm O Positive 08/25/18 16:58: Hgb 13.2 D, Hct 41.5 08/26/18 06:51: WBC 12.0 H, RBC 4.06 L D, Hgb 12.4, Hct 39.5, MCV 97.1, MCH 30.5, MCHC 31.4 L, RDW 14.3, Plt Count 229, MPV 7.6, Neut % (Auto) 87.9 H, Lymph % (Auto) 6.5 L, [place] % (Auto) 4.9, Eos % (Auto) 0.4, Baso % (Auto) 0.2, Neut # (Auto) 10.5 H, Lymph # (Auto) 0.8, [place] # (Auto) 0.6, Eos # (Auto) 0.0, Baso # (Auto) 0.0, Total Counted 100, Neutrophils % (Manual) 92 H, Lymphocytes % (Manual) 7 L, Monocytes % (Manual) 1 L, Nucleated RBCs 1, Platelet Estimate Normal, RBC Morphology Normal 08/26/18 06:51: Sodium 146 H, Potassium 4.7, Chloride 115 H, Carbon Dioxide 13 L , Anion Gap 22.7 H, BUN 59 H, Creatinine 2.39 H, Estimated Creat Clear 13, Estimated GFR 19 L*, Est GFR ( Amer) 23 L, Glucose 118 H, Calcium 8.0 L I & O for Last 24 hours: Intake & Output 08/23/18 08/24/18 08/25/18 08/26/18 11:59 11:59 11:59 11:59 Intake Total 1736 / 1736 3398.065 / 3398.065 2416 / 2416 Output Total 200 / 200 135 / 135 50 / 50 400 / 400 Balance -200 / -200 1601 / 1601 3348.065 / 3348.065 2015 Weight 105 lb 2 oz 105 lb 2.004 oz Microbiology Reports for the Last 24 Hours: Microbiology 08/22/18 19:50 Urine,Catheterized Urine Culture - Final Yeast - Constitutional no acute distress - *Routine Respiratory Exam Present: crackles (bilateral bases) - *Routine Cardiovascular Exam Present: tachycardia - *Routine Abdominal Exam Present: soft, normoactive bowel sounds - *Routine Extremities Exam Comments: [place] intact in both feet. Incision of right hip is clean Assessment and Plan (1) Hip fracture due to osteoporosis Current visit: Yes Status: Acute Category: Medical Code(s): M80.059A - Age-related osteoporosis with current pathological fracture, unspecified femur, initial encounter for fracture (2) History of [place] (myocardial infarction) Current visit: Yes Status: Acute Category: Medical Code(s): I25.2 - Old myocardial infarction (3) Chronic kidney disease, stage III (moderate) Current visit: Yes Status: Acute Category: Medical Code(s): N18.3 - Chronic kidney disease, stage 3 (moderate) (4) COPD (chronic obstructive pulmonary disease) Current visit: Yes Status: Acute Category: Medical Code(s): J44.9 - Chronic obstructive pulmonary disease, unspecified (5) Fall Current visit: Yes Status: Acute Category: Medical Code(s): W19.XXXA - Unspecified fall, initial encounter (6) Chronic anemia Current visit: Yes Status: Acute Category: Medical Code(s): D64.9 - Anemia, unspecified (7) Acute kidney injury Current visit: No Status: Acute Category: Medical Code(s): N17.9 - Acute kidney failure, unspecified (8) Yeast UTI Current visit: Yes Status: Acute Category: Medical Code(s): B37.49 - Other urogenital candidiasis (9) Anemia due to blood loss, acute Current visit: Yes Status: Acute Category: Medical Code(s): D62 - Acute posthemorrhagic anemia - Assessment and plan all Dx Assessment and Plan for all problems:: 1. OOB to chair today 2. attempt thickened liquids 3. D/C carvedilol for metoprolol
--- NOTE | 2018-08-26 15:56 | Progress Note ---
Subjective Date: 08/26/18 Time: 15:30 Principal diagnosis: Status post hemiarthroplasty, left hip Interval history: Patient is status post LEFT hip bipolar hemiarthroplasty, post op day #3. Patient is sitting out in a chair and denies any pain or discomfort. She looks a lot better today compared to how she was last couple of days. Staff nurse reports that she is still not swallowing well and is on a pured diet. No history of any fevers, chills or rigors. Her H&H showed a significant rise following blood transfusion yesterday. PN: Obj Ex Vital signs: Temp Pulse Resp BP Pulse Ox 97.5 F L 90 18 122/70 93 L 08/26/18 14:53 08/26/18 14:53 08/26/18 14:53 08/26/18 14:53 08/26/18 14:53 Narrative: Intake & Output 08/24/18 08/25/18 08/26/18 08/27/18 11:59 11:59 11:59 11:59 Intake Total 1736 / 1736 3398.065 / 3398.065 2416 / 2416 Output Total 135 / 135 50 / 50 400 / 400 Balance 1601 / 1601 3348.065 / 3348.065 2015 Weight 105 lb 2.004 oz Laboratory Results - last 24 hr 08/23/18 11:03: Crossmatch (AHG) See Detail 08/25/18 16:58: Hgb 13.2 D, Hct 41.5 08/26/18 06:51: WBC 12.0 H, RBC 4.06 L D, Hgb 12.4, Hct 39.5, MCV 97.1, MCH 30.5, MCHC 31.4 L, RDW 14.3, Plt Count 229, MPV 7.6, Neut % (Auto) 87.9 H, Lymph % (Auto) 6.5 L, [place] % (Auto) 4.9, Eos % (Auto) 0.4, Baso % (Auto) 0.2, Neut # (Auto) 10.5 H, Lymph # (Auto) 0.8, [place] # (Auto) 0.6, Eos # (Auto) 0.0, Baso # (Auto) 0.0, Total Counted 100, Neutrophils % (Manual) 92 H, Lymphocytes % (Manual) 7 L, Monocytes % (Manual) 1 L, Nucleated RBCs 1, Platelet Estimate Normal, RBC Morphology Normal 08/26/18 06:51: Sodium 146 H, Potassium 4.7, Chloride 115 H, Carbon Dioxide 13 L , Anion Gap 22.7 H, BUN 59 H, Creatinine 2.39 H, Estimated Creat Clear 13, Estimated GFR 19 L*, Est GFR ( Amer) 23 L, Glucose 118 H, Calcium 8.0 L Exam General appearance: Alert, awake, no acute distress Cardiovascular: regular rate & rhythm, normal peripheral pulses Respiratory: Breathing is nonlabored; no respiratory distress ABD: soft and non tender On examination of the LEFT hip the dressings are clean, dry and intact. No evidence of any bleeding or soakage of the dressings is noted. Distal pulses are 1+. She is wiggling the foot and ankle actively. Sensation is intact light touch throughout. - Urinary Catheter Management James Cath placed during this visit: yes Urethral indwelling: Yes Reason for continuing: Surgical procedure Insertion date: 08/22/18 Insertion time: 19:55 Progress Note: A&P (1) Hip fracture due to osteoporosis Status: Acute Current Visit: Yes (2) History of [place] (myocardial infarction) Status: Acute Current Visit: Yes (3) Chronic kidney disease, stage III (moderate) Status: Acute Current Visit: Yes (4) COPD (chronic obstructive pulmonary disease) Status: Acute Current Visit: Yes (5) Fall Status: Acute Current Visit: Yes (6) Chronic anemia Status: Acute Current Visit: Yes (7) Acute kidney injury Status: Acute Current Visit: No (8) Yeast UTI Status: Acute Current Visit: Yes (9) Anemia due to blood loss, acute Status: Acute Current Visit: Yes Assessment and Plan for All Diagnoses:: I have reviewed the medical progress note and discussed with the nursing staff regarding her condition. Patient is doing a lot better today and is sitting out in a chair. The physical therapist is here to see her and is about to mobilize her with a walker. Patient can be mobilized weightbearing as tolerated on the LEFT side by physical therapy with the walker. Continue PT/OT and pain management with narcotic analgesics as needed. Continue abduction pillow when in bed and continue standard precautions for the posterior approach hip replacement. Discontinue IV fluids when eating and drinking well. Continue DVT prophylaxis for 5 weeks from surgery-ASA 325 mg once a day, Lovenox, Coumadin, or Xarelto would all be considered appropriate agents. The surgical dressings to be changed as needed. From an orthopaedic standpoint, she can be discharged to a alf facility when appropriate from a medical standpoint. Follow- up in my office in 2 weeks from surgery for suture removal. Continue medical management as per Dr. Wheat.
[2018-08-27 06:18] LABS: Basophils % 0.2 % (0.1-2.0); Eosinophils # 0.1 K/mm3 (0.0-0.4); Eosinophils % 0.9 % (0.1-12.0); Hematocrit 40.1 % (37.0-47.0); Hemoglobin 12.8 g/dL (12.2-16.2); Lymphocytes # 0.9 K/mm3 (0.7-4.5); Lymphocytes % 6.9 % (10-50); Mean Corpuscular Hemoglobin 29.8 pg (27.0-31.2); Mean Corpuscular Volume 93.2 fl (81-99); Mean Platelet Volume 7.8 fl (7.4-10.4); Monocytes # 0.7 K/mm3 (0.1-1.0); Monocytes % 5.5 % (1.7-9.3); Neutrophils # 11.4 K/mm3 (1.8-7.8); Neutrophils % 86.5 % (37.0-80.0); Platelet Count 238 K/mm3 (142-424); Red Cell Distribution Width 14.9 % (11.5-17.5); White Blood Count 13.2 K/mm3 (4.8-10.8)
[2018-08-27 06:26] LABS: Calcium 8.4 mg/dL (8.5-10.1)
[2018-08-27 07:06] LABS: Eosinophils % 1 % (0-3); Lymphocytes % 5 % (10-50); Monocytes % 1 % (2-9); Neutrophils % 86 % (42-76); Total Cells Counted 100
[2018-08-27 07:07] LABS: RBC Morphology Normal; Rouleaux 1+
--- NOTE | 2018-08-27 07:47 | Progress Note ---
Internal Medicine - PN: Subj *Date: 08/27/18 *Time: 07:45 Interval history: Patient has no complaints. She is tolerating her diet. She sat in chair yesterday and ambulated a few feet with 2 person assist. She denies pain Exam Vital signs and Labs for Last 24 Hours: Temp Pulse Resp BP Pulse Ox 97.9 F 85 18 128/91 H 97 08/27/18 04:00 08/27/18 05:58 08/27/18 04:00 08/27/18 04:00 08/27/18 05:58 Laboratory Results - last 24 hr 08/27/18 05:40: WBC 13.2 H, RBC 4.30, Hgb 12.8, Hct 40.1, MCV 93.2, MCH 29.8, MCHC 32.0, RDW 14.9, Plt Count 238, MPV 7.8, Neut % (Auto) 86.5 H, Lymph % (Auto) 6.9 L, [place] % (Auto) 5.5, Eos % (Auto) 0.9, Baso % (Auto) 0.2, Neut # (Auto) 11.4 H, Lymph # (Auto) 0.9, [place] # (Auto) 0.7, Eos # (Auto) 0.1, Baso # (Auto) 0.0, Total Counted 100, Neutrophils % (Manual) 86 H, Band Neutrophils % 7.0, Lymphocytes % (Manual) 5 L, Monocytes % (Manual) 1 L, Eosinophils % (Manual) 1, Platelet Estimate Normal, RBC Morphology Normal, [place]le[place] 1+ 08/27/18 05:40: Sodium 147 H, Potassium 4.0, Chloride 115 H, Carbon Dioxide 20 L D, Anion Gap 16.0 H, BUN 51 H, Creatinine 1.99 H, Estimated Creat Clear 15, Estimated GFR 24 L, Est GFR ( Amer) 29 L D, Glucose 132 H, Calcium 8.4 L I & O for Last 24 hours: Intake & Output 08/24/18 08/25/18 08/26/18 08/27/18 11:59 11:59 11:59 11:59 Intake Total 1736 / 1736 3398.065 / 3398.065 2416 / 2416 1144 / 1144 Output Total 135 / 135 50 / 50 400 / 400 800 / 800 Balance 1601 / 1601 3348.065 / 3348.065 2015 344 / 344 Weight 105 lb 2.004 oz - Constitutional no acute distress - *Routine Respiratory Exam Present: decreased breath sounds (in bases) - *Routine Cardiovascular Exam Present: RRR, Normal S1, Normal S2 - *Routine Skin Exam Comments: incision left hip clean and dry Assessment and Plan (1) Hip fracture due to osteoporosis Current visit: Yes Status: Acute Category: Medical Code(s): M80.059A - Age-related osteoporosis with current pathological fracture, unspecified femur, initial encounter for fracture (2) History of [place] (myocardial infarction) Current visit: Yes Status: Acute Category: Medical Code(s): I25.2 - Old myocardial infarction (3) Chronic kidney disease, stage III (moderate) Current visit: Yes Status: Acute Category: Medical Code(s): N18.3 - Chronic kidney disease, stage 3 (moderate) (4) COPD (chronic obstructive pulmonary disease) Current visit: Yes Status: Acute Category: Medical Code(s): J44.9 - Chronic obstructive pulmonary disease, unspecified (5) Fall Current visit: Yes Status: Acute Category: Medical Code(s): W19.XXXA - Unspecified fall, initial encounter (6) Chronic anemia Current visit: Yes Status: Acute Category: Medical Code(s): D64.9 - Anemia, unspecified (7) Acute kidney injury Current visit: No Status: Acute Category: Medical Code(s): N17.9 - Acute kidney failure, unspecified (8) Yeast UTI Current visit: Yes Status: Acute Category: Medical Code(s): B37.49 - Other urogenital candidiasis (9) Anemia due to blood loss, acute Current visit: Yes Status: Acute Category: Medical Code(s): D62 - Acute posthemorrhagic anemia - Assessment and plan all Dx Assessment and Plan for all problems:: Continue current care. Possible d/c tomorrow to [place]
--- NOTE | 2018-08-27 19:46 | Progress Note ---
Subjective Date: 08/27/18 Time: 19:30 Principal diagnosis: Status post hemiarthroplasty, left hip Interval history: Patient is status post LEFT hip bipolar hemiarthroplasty, post op day # 4. Patient is lying down in bed and denies any pain or discomfort. She is doing a lot better today. She did mobilize with physical therapy today -1 person maximum assist and took a few steps. Staff nurse reports that she is transitioned to solid diet today and is eating well. No history of any fevers, chills or rigors. PN: Obj Ex Vital signs: Temp Pulse Resp BP Pulse Ox 97.6 F 89 21 115/76 91 L 08/27/18 15:46 08/27/18 15:46 08/27/18 15:46 08/27/18 15:46 08/27/18 15:46 Narrative: Intake & Output 08/25/18 08/26/18 08/27/18 08/28/18 11:59 11:59 11:59 11:59 Intake Total 3398.065 / 3398.065 2466 / 2466 1264 / 1264 839 / 839 Output Total 50 / 50 400 / 400 800 / 800 Balance 3348.065 / 3348.065 2066 / 2066 464 / 464 839 / 839 Laboratory Results - last 24 hr 08/27/18 05:40: WBC 13.2 H, RBC 4.30, Hgb 12.8, Hct 40.1, MCV 93.2, MCH 29.8, MCHC 32.0, RDW 14.9, Plt Count 238, MPV 7.8, Neut % (Auto) 86.5 H, Lymph % (Auto) 6.9 L, [place] % (Auto) 5.5, Eos % (Auto) 0.9, Baso % (Auto) 0.2, Neut # (Auto) 11.4 H, Lymph # (Auto) 0.9, [place] # (Auto) 0.7, Eos # (Auto) 0.1, Baso # (Auto) 0.0, Total Counted 100, Neutrophils % (Manual) 86 H, Band Neutrophils % 7.0, Lymphocytes % (Manual) 5 L, Monocytes % (Manual) 1 L, Eosinophils % (Manual) 1, Platelet Estimate Normal, RBC Morphology Normal, Roule[place] 1+ 08/27/18 05:40: Sodium 147 H, Potassium 4.0, Chloride 115 H, Carbon Dioxide 20 L D, Anion Gap 16.0 H, BUN 51 H, Creatinine 1.99 H, Estimated Creat Clear 15, Estimated GFR 24 L, Est GFR ( Amer) 29 L D, Glucose 132 H, Calcium 8.4 L Exam General appearance: Alert, awake, no acute distress Cardiovascular: regular rate & rhythm, normal peripheral pulses Respiratory: Breathing is nonlabored; no respiratory distress ABD: soft and non tender On examination of the LEFT hip the dressings are clean, dry and intact. No evidence of any bleeding or soakage of the dressings is noted. Distal pulses are 1+. She is wiggling the foot and ankle actively. Sensation is intact light touch throughout. - Urinary Catheter Management James Cath placed during this visit: yes Urethral indwelling: Yes Reason for continuing: Surgical procedure Insertion date: 08/22/18 Insertion time: 19:55 Progress Note: A&P (1) Hip fracture due to osteoporosis Status: Acute Current Visit: Yes (2) History of [place] (myocardial infarction) Status: Acute Current Visit: Yes (3) Chronic kidney disease, stage III (moderate) Status: Acute Current Visit: Yes (4) COPD (chronic obstructive pulmonary disease) Status: Acute Current Visit: Yes (5) Fall Status: Acute Current Visit: Yes (6) Chronic anemia Status: Acute Current Visit: Yes (7) Acute kidney injury Status: Acute Current Visit: No (8) Yeast UTI Status: Acute Current Visit: Yes (9) Anemia due to blood loss, acute Status: Acute Current Visit: Yes Assessment and Plan for All Diagnoses:: I have reviewed the medical progress note and discussed with the nursing staff regarding her condition. Patient is doing a lot better today and has sat out in the chair most of the time. She also mobilized with physical therapy-1 person maximum assist and took a few steps. Continue PT/OT and pain management with as needed medication. Continue abduction pillow when in bed and continue standard precautions for the posterior approach hip replacement for 6 weeks postop. Continue DVT prophylaxis for 5 weeks from surgery-ASA 325 mg once a day, Lovenox, Coumadin, or Xarelto would all be considered appropriate agents. The surgical dressings to be changed as needed. From an orthopaedic standpoint, she can be discharged to a [facility] facility when appropriate from a medical standpoint. Follow-up in my office in 2 weeks from surgery for suture removal. Continue medical management as per Dr. Wheat.
[2018-08-28 05:44] LABS: Basophils % 0.2 % (0.1-2.0); Eosinophils # 0.2 K/mm3 (0.0-0.4); Eosinophils % 2.1 % (0.1-12.0); Hematocrit 38.5 % (37.0-47.0); Hemoglobin 12.2 g/dL (12.2-16.2); Lymphocytes # 0.7 K/mm3 (0.7-4.5); Lymphocytes % 6.6 % (10-50); Mean Corpuscular HGB Conc 31.8 g/dL (31.8-35.4); Mean Corpuscular Hemoglobin 29.8 pg (27.0-31.2); Mean Corpuscular Volume 93.7 fl (81-99); Mean Platelet Volume 8.3 fl (7.4-10.4); Monocytes # 0.7 K/mm3 (0.1-1.0); Neutrophils # 9.3 K/mm3 (1.8-7.8); Neutrophils % 85.1 % (37.0-80.0); Platelet Count 217 K/mm3 (142-424); Red Blood Count 4.11 M/mm3 (4.20-5.40); Red Cell Distribution Width 14.8 % (11.5-17.5); White Blood Count 10.9 K/mm3 (4.8-10.8)
[2018-08-28 06:03] LABS: Hypochromasia 1+; Lymphocytes % 8 % (10-50); Monocytes % 4 % (2-9); Neutrophils % 83 % (42-76); Rouleaux 1+; Total Cells Counted 100
[2018-08-28 06:05] LABS: Anion Gap 13.4 mEq/L (5-15); Calcium 8.3 mg/dL (8.5-10.1); Potassium 3.4 mmoL/L (3.5-5.1)
--- NOTE | 2018-08-28 08:02 | Progress Note ---
Internal Medicine - PN: Subj *Date: 08/28/18 *Time: 08:00 Interval history: Patient denies pain or shortness of breath this morning. She was able to ambulate some with assistance yesterday. James catheter was removed in the morning but by yesterday evening had to be reinserted as patient developed some abdominal distention from urinary retention. James catheter is draining clear yellow urine. Nursing reports that patient is edematous in her perineal area. Exam Vital signs and Labs for Last 24 Hours: Temp Pulse Resp BP Pulse Ox 97.9 F 84 20 136/71 90 L 08/28/18 04:00 08/28/18 06:27 08/28/18 04:00 08/28/18 04:00 08/28/18 06:27 Laboratory Results - last 24 hr 08/28/18 05:12: WBC 10.9 H, RBC 4.11 L, Hgb 12.2, Hct 38.5, MCV 93.7, MCH 29.8, MCHC 31.8, RDW 14.8, Plt Count 217, MPV 8.3, Neut % (Auto) 85.1 H, Lymph % (Auto) 6.6 L, [place] % (Auto) 6.0, Eos % (Auto) 2.1, Baso % (Auto) 0.2, Neut # (Auto) 9.3 H, Lymph # (Auto) 0.7, [place] # (Auto) 0.7, Eos # (Auto) 0.2, Baso # (Auto) 0.0, Total Counted 100, Neutrophils % (Manual) 83 H, Band Neutrophils % 5.0, Lymphocytes % (Manual) 8 L, Monocytes % (Manual) 4, Platelet Estimate Normal, Hypochromasia 1+, [place]le[place] 1+ 08/28/18 05:12: Sodium 147 H, Potassium 3.4 L, Chloride 116 H, Carbon Dioxide 21, Anion Gap 13.4, BUN 46 H, Creatinine 1.58 H D, Estimated Creat Clear 19, Estimated GFR 31 L, Est GFR ( Amer) 38 L D, Glucose 107 H, Calcium 8.3 L I & O for Last 24 hours: Intake & Output 08/25/18 08/26/18 08/27/18 08/28/18 11:59 11:59 11:59 11:59 Intake Total 3398.065 / 3398.065 2466 / 2466 1264 / 1264 1319 / 1319 Output Total 50 / 50 400 / 400 800 / 800 450 / 450 Balance 3348.065 / 3348.065 6 / 2066 464 / 464 869 / 869 Narrative: Patient is awake and conversant. She is eating breakfast. Anteriorly her lungs are clear. Posteriorly lungs are diminished at the bases. Heart has a regular rate and rhythm. Abdomen is soft, nontender, nondistended. Left hip incision is clean dry and intact. Assessment and Plan (1) Hip fracture due to osteoporosis Current visit: Yes Status: Acute Category: Medical Code(s): M80.059A - Age-related osteoporosis with current pathological fracture, unspecified femur, initial encounter for fracture (2) History of [place] (myocardial infarction) Current visit: Yes Status: Acute Category: Medical Code(s): I25.2 - Old myocardial infarction (3) Chronic kidney disease, stage III (moderate) Current visit: Yes Status: Acute Category: Medical Code(s): N18.3 - Chronic kidney disease, stage 3 (moderate) (4) COPD (chronic obstructive pulmonary disease) Current visit: Yes Status: Acute Category: Medical Code(s): J44.9 - Chronic obstructive pulmonary disease, unspecified (5) Fall Current visit: Yes Status: Acute Category: Medical Code(s): W19.XXXA - Unspecified fall, initial encounter (6) Chronic anemia Current visit: Yes Status: Acute Category: Medical Code(s): D64.9 - Anemia, unspecified (7) Acute kidney injury Current visit: No Status: Acute Category: Medical Code(s): N17.9 - Acute kidney failure, unspecified (8) Yeast UTI Current visit: Yes Status: Acute Category: Medical Code(s): B37.49 - Other urogenital candidiasis (9) Anemia due to blood loss, acute Current visit: Yes Status: Acute Category: Medical Code(s): D62 - Acute posthemorrhagic anemia - Assessment and plan all Dx Assessment and Plan for all problems:: Patient has improved. She is eating and tolerating her diet. She is ambulating with some assistance and has been out of bed to chair. She does still have an oxygen requirement and will continue to encourage incentive spirometry. James catheter will be needed for additional time. For bladder training. Patient is appropriate for discharge to [facility] facility if she is still been accepted. Will contact [place] today
--- NOTE | 2018-08-28 08:03 | Discharge Summary ---
General - General Admission date:: 08/22/18 Discharge date: 08/28/18 HPI HPI: 88-year-old female with COPD and history of coronary artery disease presented to the emergency department after slipping and falling at home landing on her left side. Patient tells me she was wearing house slippers in her kitchen when she lost her footing and fell. She denies loss of consciousness. She denies chest pain. Patient was brought to the emergency department where she was diagnosed with a left femoral neck fracture. Patient was admitted for orthopedic consultation. Hospital Course Hospital Course: Patient was admitted and on August 22 underwent uncemented bipolar hemiarthroplasty of the left hip performed by Dr. Snider. Postoperatively the patient was quite confused and ultimately developed some hypotension. She was treated with aggressive fluid resuscitation and required a Levophed drip for approximately 24 hours. She also developed anemia that was treated with 2 units of packed red blood cells which helped improve her blood pressure. After August 26 blood pressure remained elevated in the 120s systolic. Patient also developed acute kidney injury postoperatively which was treated with fluids. Creatinine reached a high of 2.7 but had decreased to her baseline range by the time of discharge. Because of the patient's hypotension and history of coronary artery disease an echocardiogram was performed. Echocardiogram showed evidence of acute right heart strain and heart failure along with a normal ejection fraction of 65% with a hyperdynamic left ventricle. Patient's beta-blockers were changed from carvedilol to metoprolol to achieve better heart rate control. Pulse had been in the 70s and 80s in the 24 hours prior to discharge. Because of patient's debility postoperatively James catheter was kept in place longer than 24 hours. This allowed for proper monitoring of urine output. On August 27 the patient was doing well enough that the catheter could finally be removed. However on the evening of the patient required reinsertion of the catheter due to urinary retention. She will need bladder training to continue at the [facility] facility Patient was kept on Lovenox postoperatively for DVT prophylaxis and will need to continue Eliquis for 4 additional weeks at discharge Patient has underlying COPD and was treated with duo nebs postoperatively. She wears oxygen at home and was continued on oxygen during hospitalization. Patient requiring 2-3 L/min of oxygen via nasal cannula. Because of the large volume of fluids the patient received along with the acute kidney injury patient developed some third spacing in the perineal area. This will be treated with she knows that Lasix and serial weight monitoring. Patient met sepsis criteria postoperatively and was started on Levaquin. Chest x-ray suggested a possible small infiltrate versus atelectasis. She will finish a 7-day course of Levaquin. I did feel it was likely that atelectasis was pr esent on x-ray as patient had poor inspiratory capacity. Patient was encouraged to use incentive spirometer but even with bedside coaching could barely inspire 250 mL's Mental status: Below average Rehab potential: Fair Prognosis: Fair Objective Vital signs: Temp Pulse Resp BP Pulse Ox 97.9 F 84 20 136/71 90 L 08/28/18 04:00 08/28/18 06:27 08/28/18 04:00 08/28/18 04:00 08/28/18 06:27 Narrative: The day of discharge the patient was conversant and alert. She is oriented to place and self. She is edentulous. Lungs were clear to auscultation anteriorly but diminished in the bases with poor inspiratory effort. Heart had a regular rate and rhythm. Abdomen was soft, nontender, nondistended. Patient had swelling within the perineum. James catheter was in place due to urinary retention. Extremities were warm to the touch. Her incision of the left hip was clean dry and intact Results Labs on day of discharge: Labs from last 24 hours 08/28/18 08/28/18 05:12 05:12 WBC 10.9 H RBC 4.11 L Hgb 12.2 Hct 38.5 MCV 93.7 MCH 29.8 MCHC 31.8 RDW 14.8 Plt Count 217 MPV 8.3 Neut % (Auto) 85.1 H Lymph % (Auto) 6.6 L Colbert % (Auto) 6.0 Eos % (Auto) 2.1 Baso % (Auto) 0.2 Neut # (Auto) 9.3 H Lymph # (Auto) 0.7 Colbert # (Auto) 0.7 Eos # (Auto) 0.2 Baso # (Auto) 0.0 Total Counted 100 Neutrophils % (Manual) 83 H Band Neutrophils % 5.0 Lymphocytes % (Manual) 8 L Monocytes % (Manual) 4 Platelet Estimate Normal Hypochromasia 1+ Rouleaux 1+ Sodium 147 H Potassium 3.4 L Chloride 116 H Carbon Dioxide 21 Anion Gap 13.4 BUN 46 H Creatinine 1.58 H D Estimated Creat Clear 19 Estimated GFR 31 L Est GFR ( Amer) 38 L D Glucose 107 H Calcium 8.3 L DS: Diagnosis - Discharge Diagnosis (1) Hip fracture due to osteoporosis Status: Acute (2) History of SC (myocardial infarction) Status: Acute (3) Chronic kidney disease, stage III (moderate) Status: Acute (4) COPD (chronic obstructive pulmonary disease) Status: Acute (5) Fall Status: Acute (6) Chronic anemia Status: Acute (7) Acute kidney injury Status: Acute (8) Yeast UTI Status: Acute (9) Anemia due to blood loss, acute Status: Acute Discharge Plan - Patient Discharge Instructions ACTIVITY: Continue current activity DIET: continue same diet Patient Instructions: How to Care for a Surgical Wound, DI for Hip Fracture, DI for Urinary Tract Infection (UTI), DI for Surgical Site Infection - Follow up Plan Disposition: [facility] Home Medications: Home Medications Medication Instructions Recorded Confirmed Type Aspirin [Aspirin 81mg chewable 81 mg PO DAILY 01/30/18 08/22/18 History tab] Carvedilol [Carvedilol 6.25mg Tab] 6.25 mg PO BID 01/30/18 08/22/18 History diazePAM [Valium] 5 mg PO DAILYP PRN 01/30/18 08/23/18 History Cetirizine HCl 10 mg PO DAILY 08/23/18 08/23/18 History Potassium Chloride [Klor-con 20 20 meq PO DAILY 08/23/18 08/23/18 History mEq tablet] Apixaban [Eliquis] 2.5 mg PO BID #60 tablet 08/28/18 Rx Furosemide [Furosemide 40MG tAB] 40 mg PO DAILY #30 tab 08/28/18 Rx Hydrocod/Acet 5/325 mg [[place] 1 tab PO Q4HP PRN #30 tab 08/28/18 Rx 5/325mg tablet] Metoprolol Succinate [Toprol XL 25 mg PO DAILY #60 tab.er.24h 08/28/18 Rx 25mg tablet] levoFLOXacin [Levaquin 500mg 500 mg PO DAILY #3 tab 08/28/18 Rx tab] Prescriptions/Medication Reconciliation: New Hydrocod/Acet 5/325 mg [[place] 5/325mg tablet] 1 tab PO Q4HP PRN #30 tab PRN Reason: Moderate To Severe Pain Apixaban [Eliquis] 2.5 mg PO BID #60 tablet Furosemide [Furosemide 40MG tAB] 40 mg PO DAILY #30 tab Metoprolol Succinate [Toprol XL 25mg tablet] 25 mg PO DAILY #60 tab.er.24h levoFLOXacin [Levaquin 500mg tab] 500 mg PO DAILY #3 tab Continue Aspirin [Aspirin 81mg chewable tab] 81 mg PO DAILY Cetirizine HCl 10 mg PO DAILY Potassium Chloride [Klor-con 20 mEq tablet] 20 meq PO DAILY Discontinued Carvedilol [Carvedilol 6.25mg Tab] 6.25 mg PO BID diazePAM [Valium] 5 mg PO DAILYP PRN PRN Reason: Anxiety
--- NOTE | 2018-08-28 10:39 | Progress Note ---
Internal Medicine - PN: Subj *Date: 08/28/18 *Time: 10:39 Exam Vital signs and Labs for Last 24 Hours: Temp Pulse Resp BP Pulse Ox 97.9 F 70 19 137/73 98 08/28/18 08:00 08/28/18 09:53 08/28/18 08:00 08/28/18 08:00 08/28/18 08:00 Laboratory Results - last 24 hr 08/28/18 05:12: WBC 10.9 H, RBC 4.11 L, Hgb 12.2, Hct 38.5, MCV 93.7, MCH 29.8, MCHC 31.8, RDW 14.8, Plt Count 217, MPV 8.3, Neut % (Auto) 85.1 H, Lymph % (Auto) 6.6 L, [place] % (Auto) 6.0, Eos % (Auto) 2.1, Baso % (Auto) 0.2, Neut # (Auto) 9.3 H, Lymph # (Auto) 0.7, [place] # (Auto) 0.7, Eos # (Auto) 0.2, Baso # (Auto) 0.0, Total Counted 100, Neutrophils % (Manual) 83 H, Band Neutrophils % 5.0, Lymphocytes % (Manual) 8 L, Monocytes % (Manual) 4, Platelet Estimate Normal, Hypochromasia 1+, Rouleaux 1+ 08/28/18 05:12: Sodium 147 H, Potassium 3.4 L, Chloride 116 H, Carbon Dioxide 21, Anion Gap 13.4, BUN 46 H, Creatinine 1.58 H D, Estimated Creat Clear 19, Estimated GFR 31 L, Est GFR ( Amer) 38 L D, Glucose 107 H, Calcium 8.3 L I & O for Last 24 hours: Intake & Output 08/25/18 08/26/18 08/27/18 08/28/18 23:59 23:59 23:59 23:59 Intake Total 2242.065 / 2242.065 1874 / 1874 203 / 203 600 / 600 Output Total 200 / 200 700 / 700 300 / 300 450 / 450 Balance 2042.065 / 2042.065 1174 / 1174 1733 / 1733 150 / 150 Assessment and Plan (1) Hip fracture due to osteoporosis Current visit: Yes Status: Acute Category: Medical Code(s): M80.059A - Age-related osteoporosis with current pathological fracture, unspecified femur, initial encounter for fracture (2) History of ME (myocardial infarction) Current visit: Yes Status: Acute Category: Medical Code(s): I25.2 - Old myocardial infarction (3) Chronic kidney disease, stage III (moderate) Current visit: Yes Status: Acute Category: Medical Code(s): N18.3 - Chronic kidney disease, stage 3 (moderate) (4) COPD (chronic obstructive pulmonary disease) Current visit: Yes Status: Acute Category: Medical Code(s): J44.9 - Chronic obstructive pulmonary disease, unspecified (5) Fall Current visit: Yes Status: Acute Category: Medical Code(s): W19.XXXA - Unspecified fall, initial encounter (6) Chronic anemia Current visit: Yes Status: Acute Category: Medical Code(s): D64.9 - Anemia, unspecified (7) Acute kidney injury Current visit: No Status: Acute Category: Medical Code(s): N17.9 - Acute kidney failure, unspecified (8) Yeast UTI Current visit: Yes Status: Acute Category: Medical Code(s): B37.49 - Other urogenital candidiasis (9) Anemia due to blood loss, acute Current visit: Yes Status: Acute Category: Medical Code(s): D62 - Acute posthemorrhagic anemia The patient's infection will respond to the chosen ABx?: Yes Is the patient receiving the right drug, dose, and route?: Yes Could a more targeted ABx be ordered?: No
== END 2018-08-28 13:55 | DRG 470 ==
LOC: ER 17:18 → 2ND 19:13
PROVIDERS: ADMIT Emergency Medicine; ATTEND Family Medicine
CPT/HCPCS: 36415; 71010; 71045; 73502; 73552; 73700; 80048; 80053; 81001; 82962; 83880; 85007; 85014; 85018; 85025; 85610; 85730; 86850; 87086; 92507; 92610; 93005; 93306; 94640; 94760; 94761; 96365; 96375; 97110; 97162; 97530; 99285; C1713; C1776; J0697; J1450; J1956; J2405; J2704; P9016